=== PATIENT | male | born 1980 | race Caucasian/White ===

== ENCOUNTER 2016-09-02 18:57 | Emergency (ER) | payer SELFPAY ==
[2016-09-02] MEDS ORDERED: ONDANSETRON HCL INJ/PF 4 MG/2 ML SDV IV ONE ×2 (20:00→22:43)
[2016-09-02] MEDS ORDERED: NORMAL SALINE 1000 ML 1,000 ML IV ONE (20:00)
[2016-09-02 20:58] LABS: ABSOLUTE BASOPHILS # (AUTO) 0.1 10^3/uL (0.0-0.2); ABSOLUTE EOSINOPHILS # (AUTO) 0.1 10^3/uL (0.0-0.6); ABSOLUTE LYMPHOCYTES (AUTO) 1.4 10^3/uL (0.5-4.7); ABSOLUTE MONOCYTES (AUTO) 0.3 10^3/uL (0.1-1.4); ABSOLUTE NEUT (AUTO) 7.6 10^3/uL (1.7-8.2); BASOPHILS % (AUTO) 0.6 % (0-2); EOSINOPHILS % (AUTO) 1.4 % (0-6); HEMATOCRIT 43.6 % (37.9-51.0); HEMOGLOBIN 15.2 g/dL (13.5-17.0); LYMPHOCYTES % (AUTO) 14.8 % (13-45); MEAN CORPUSCULAR HEMOGLOBIN 27.6 pg (27.0-33.4); MEAN CORPUSCULAR HGB CONC 34.8 g/dL (32.0-36.0); MEAN CORPUSCULAR VOLUME 79 fl (80-97); MONOCYTES % (AUTO) 3.2 % (3-13); RED BLOOD COUNT 5.49 10^6/uL (4.35-5.55); RED CELL DISTRIBUTION WIDTH 13.6 % (11.5-14.0); WHITE BLOOD COUNT 9.5 10^3/uL (4.0-10.5)
[2016-09-02] MEDS: MORPHINE SULFATE 10 MG/ML INJ IV PRN ×2 (21:01→22:32)
--- NOTE | 2016-09-02 21:07 | ER Document Report ---
ED General - General Chief Complaint: Abdominal Pain Stated Complaint: ABDOMINAL PAIN Notes: Patient is a 35-year-old male with past medical history of a duodenal perforation that required an emergent surgical laparotomy who presents with concerns of recurrence of this pathology. Patient states the past 3 days he has woken up in the morning with severe vomiting and diffuse abdominal pain worse in the epigastrium. States on the previous days this pain has resolved as of vomiting independently without any intervention. However today his symptoms did not go away once they started in the morning. He describes severe , constant, stabbing pain in the epigastric portion of the abdomen. Nothing improves or worsens the pain. He has had multiple episodes of nonbilious vomiting. Last bowel movement was yesterday and noted to be normal. He has not had any melena, hematochezia or hemoptysis. He has not seen his primary care doctor regarding today's concerns. He has no additional prior surgical history. He is on Suboxone. TRAVEL OUTSIDE OF THE [place] IN LAST 30 DAYS: No - Related Data Allergies/Adverse Reactions: No Known Allergies Allergy (Unverified 09/02/16 22:34) Past Medical History - General Information source: Patient - Social History Smoking Status: Current Every Day Smoker Frequency of alcohol use: None Drug Abuse: None Lives with: Spouse/Significant other Family History: Reviewed & Not Pertinent Renal/ Medical History: Denies: Hx Peritoneal Dialysis Skin Medical History: Comment Only Hx MRSA - MRSA 02/13/2007 ABDOMEN Review of Systems - Review of Systems Notes: Constitutional: Negative for fever. HENT: Negative for sore throat. Eyes: Negative for visual changes. Cardiovascular: Negative for chest pain. Respiratory: Negative for shortness of breath. Gastrointestinal: Positive for abdominal pain and vomiting Genitourinary: Negative for dysuria. Musculoskeletal: Negative for back pain. Skin: Negative for rash. Neurological: Negative for headaches, weakness or numbness. 10 point ROS negative except as marked above and in HPI. Physical Exam - Vital signs Vitals: Temp Pulse Resp BP Pulse Ox 98.5 F 85 14 143/98 H 97 09/02/16 18:59 09/02/16 18:59 09/02/16 18:59 09/02/16 18:59 09/02/16 18:59 Notes: PHYSICAL EXAMINATION: GENERAL: Appears uncomfortable and in pain HEAD: Atraumatic, normocephalic. EYES: Pupils equal round and reactive to light, extraocular movements intact, sclera anicteric, conjunctiva are normal. ENT: nares patent, oropharynx clear without exudates. Dry mucous membranes. NECK: Normal range of motion, supple without lymphadenopathy LUNGS: Breath sounds clear to auscultation bilaterally and equal. No wheezes rales or rhonchi. HEART: Regular rate and rhythm without murmurs ABDOMEN: Prior laparotomy scar. Diffuse tenderness on palpation most focally in the epigastrium with voluntary guarding but no rebound tenderness EXTREMITIES: Normal range of motion, no pitting or edema. No cyanosis. NEUROLOGICAL: No focal neurological deficits. Moves all extremities spontaneously and on command. PSYCH: Normal mood, normal affect. SKIN: Warm, Dry, normal turgor, no rashes or lesions noted. Course - Re-evaluation Re-evalutation: 09/02/16 21:09 Patient presents with epigastric abdominal tenderness with voluntary guarding and is somewhat ill in appearance. He is hyperventilating likely secondary to pain at time of presentation. His vitals tachycardia but otherwise unremarkable. His examination beyond having abdominal tenderness in the epigastrium with voluntary guarding is otherwise unremarkable. Will obtain labs , CT the abdomen and pelvis with IV contrast to evaluate for recurrence of perforation or bowel obstruction 09/02/16 23:17 CT pelvis unremarkable without evidence of bowel perforation or obstruction. Bedside ultrasound without right upper quadrant view demonstrates a normal gallbladder without pericholecystic fluid, gallbladder wall thickening or gallstones. He has no tenderness to direct palpation the area using the ultrasound probe. At this time based on his clinical history, reassuring labs and imaging studies I believe the most with the diagnosis is gastritis with esophageal irritation as patient does report a history of his symptoms being much worse in the morning and progressively improving throughout the day. He admits to consuming "only Mountain Dew and never water". He also smokes, regularly eats spicy food. He is treated with H2 blockers and GI cocktail here in the emergency room with improvement of his symptoms. I have instructed him on dietary modifications and will start him on famotidine.At this time will discharge with return precautions and follow-up recommendations. Verbal discharge instructions given a the bedside and opportunity for questions given. Medication warnings reviewed. Patient is in agreement with this plan and has verbalized understanding of return precautions and the need for primary care follow-up in the next 24-72 hours. - Vital Signs Vital signs: Temp Pulse Resp BP Pulse Ox 98.5 F 85 14 143/98 H 97 09/02/16 18:59 09/02/16 18:59 09/02/16 18:59 09/02/16 18:59 09/02/16 18:59 - Laboratory Result Diagrams: 09/02/16 20:47 09/02/16 20:47 Laboratory results interpreted by me: 09/02/16 09/02/16 20:47 20:47 MCV 79 L Seg Neutrophils % 80.0 H BUN 22 H Glucose 127 H AST 93 H ALT 131 H Total Protein 8.4 H - Diagnostic Test Radiology reviewed: Reports reviewed Discharge - Discharge Clinical Impression: Epigastric abdominal pain Condition: Good Disposition: HOME, SELF-CARE Additional Instructions: Your symptoms appear to be most consistent with stomach or upper intestinal irritation. Your evaluation here today has not demonstrated an alternative cause for your symptoms. Please begin taking famotidine 40 mg in the morning and 40 mg at night. This medicine can be purchased directly [id number]. You may also take medicine such as Pepto-Bismol or Tums to assist with your pain. Please follow closely with your primary care doctor in the next 24-48 hours regarding today's emergency department visit. Please return immediately if you develop persistent vomiting, worsening pain, again having bloody bowel movements, develop a fever greater than 100.4F, or have any other symptoms that are worrisome to you.
[2016-09-02 21:23] LABS: ALANINE AMINOTRANSFERASE 131 U/L (21-72); ALBUMIN 4.7 g/dL (3.5-5.0); ALKALINE PHOSPHATASE 65 U/L (38-126); ANION GAP 13 (5-19); ASPARTATE AMINO TRANSFERASE 93 U/L (17-59); BILIRUBIN,DIRECT 0.4 mg/dL (0.0-0.4); BILIRUBIN,TOTAL 0.7 mg/dL (0.2-1.3); BLOOD UREA NITROGEN 22 mg/dL (7-20); CALCIUM 10.1 mg/dL (8.4-10.2); CARBON DIOXIDE 27 mmol/L (22-30); CHLORIDE 103 mmol/L (98-107); CREATININE RESULT 0.61 mg/dL (0.52-1.25); GLUCOSE 127 mg/dL (75-110); LIPASE 55.4 U/L (23-300); SODIUM 143.4 mmol/L (137-145); TOTAL PROTEIN 8.4 g/dL (6.3-8.2)
[2016-09-02] MEDS ORDERED: METOCLOPRAMIDE HCL ORAL SOLN 10 MG/10 ML UDCUP PO ONE (23:19)
[2016-09-02] MEDS ORDERED: FAMOTIDINE 20 MG TABLET PO ONE (23:19)
[2016-09-02] MEDS ORDERED: MAG HYDROX/AL HYDROX/SIMETH SUSP 30 ML UDCUP PO ONE (23:19)
[2016-09-02] MEDS ORDERED: LIDOCAINE 2% VISCOUS SOLN 20 ML UDCUP PO ONE (23:19)
[2016-09-02] MEDS ORDERED: ONDANSETRON ODT 4 MG TAB (6 TAB/DSPK) PO PRN (23:20)
[2016-09-03 01:03] VITALS: BP 141/84
== END 2016-09-03 01:02 | disposition home or self-care (01) ==
LOC: ER 18:57
DX: R10.13 Epigastric pain (principal); Z86.14 Personal history of Methicillin resistant Staphylococcus aureus infection
CPT/HCPCS: 96376; 99284; 96361; 96374; 96375; 36415; 83690; 85025; 80053; 74177; J3490; J2270; J2405; J7030

== ENCOUNTER 2017-10-29 20:39 | Inpatient (IN) | payer SELFPAY ==
[2017-10-30] MEDS ORDERED: VANCOMYCIN HCL INJ 1000 MG VIAL IV ONE (00:17)
[2017-10-30] MEDS ORDERED: CEFTRIAXONE INJ 1000 MG VIAL IV ONE (00:17)
[2017-10-30] MEDS ORDERED: KETOROLAC TROMETHAMINE INJ/PF 30 MG/1 ML SDV IV ONE (00:17)
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
[2017-10-30 00:52] LABS: ABSOLUTE EOSINOPHILS # (AUTO) 0.2 10^3/uL (0.0-0.6); ABSOLUTE LYMPHOCYTES (AUTO) 1.3 10^3/uL (0.5-4.7); ABSOLUTE MONOCYTES (AUTO) 0.6 10^3/uL (0.1-1.4); ABSOLUTE NEUT (AUTO) 5.7 10^3/uL (1.7-8.2); BASOPHILS % (AUTO) 0.3 % (0-2); EOSINOPHILS % (AUTO) 2.7 % (0-6); HEMOGLOBIN 12.5 g/dL (13.5-17.0); LYMPHOCYTES % (AUTO) 16.4 % (13-45); MEAN CORPUSCULAR HEMOGLOBIN 27.1 pg (27.0-33.4); MEAN CORPUSCULAR HGB CONC 34.6 g/dL (32.0-36.0); MEAN CORPUSCULAR VOLUME 78 fl (80-97); MONOCYTES % (AUTO) 8.2 % (3-13); PLATELET COUNT 246 10^3/uL (150-450); RED CELL DISTRIBUTION WIDTH 13.5 % (11.5-14.0); SEGMENTED NEUTROPHILS % (AUTO) 72.4 % (42-78); TOTAL CELLS COUNTED % (AUTO) 100 %; WHITE BLOOD COUNT 7.9 10^3/uL (4.0-10.5)
[2017-10-30 01:08] LABS: ALANINE AMINOTRANSFERASE 101 U/L (21-72); ALBUMIN 3.7 g/dL (3.5-5.0); ALKALINE PHOSPHATASE 57 U/L (38-126); ANION GAP 8 (5-19); ASPARTATE AMINO TRANSFERASE 64 U/L (17-59); BILIRUBIN,DIRECT 0.2 mg/dL (0.0-0.4); BILIRUBIN,TOTAL 0.3 mg/dL (0.2-1.3); BLOOD UREA NITROGEN 15 mg/dL (7-20); C-REACTIVE PROTEIN 40.6 mg/L (<10.0); CARBON DIOXIDE 28 mmol/L (22-30); CHLORIDE 106 mmol/L (98-107); GLUCOSE 110 mg/dL (75-110); POTASSIUM 3.8 mmol/L (3.6-5.0); SODIUM 142.4 mmol/L (137-145); TOTAL PROTEIN 6.9 g/dL (6.3-8.2)
--- NOTE | 2017-10-30 01:12 | RADIOLOGY REPORT (SQ) ---
Plain Film Of The Hand LEFT Clinical History: Pain. Technique: 3 views of the hand are submitted for review. Comparison: None Findings: Postoperative changes of the second and third metacarpal are demonstrated. There is evidence of orthopedic hardware fracture of the plate overlying the second digit.. There is no evidence for acute fracture. Bone mineralization is within normal. Joint spaces are maintained. Soft tissues are edematous. Impression: 1. Fracture to the orthopedic plate overlying the second metacarpal. 2. Fracture of a orthopedic screw overlying the third digit.
[2017-10-30] MEDS: MORPHINE SULFATE IR 15 MG TABLET PO PRN ×3 (01:24→21:33)
[2017-10-30 02:02] LABS: ERYTHROCYTE SEDIMENTATION RATE 30 mm/hr (0-15)
[2017-10-30] MEDS ORDERED: DEXTROSE 40% GEL 15 GM TUBE PO PRN ×2 (03:56)
[2017-10-30] MEDS ORDERED: GLUCAGON,HUMAN RECOMB 1 MG INJ SUBCUT PRN (03:56)
[2017-10-30] MEDS ORDERED: DEXTROSE 50%-WATER 25 GM/50 ML DISP.SYRIN IV PRN ×2 (03:56)
[2017-10-30] MEDS: OXYCODONE-ACETAMINOPHEN 5-325 MG TABLET PO PRN ×2 (06:52→23:50)
[2017-10-30] MEDS: KETOROLAC TROMETHAMINE INJ/PF 30 MG/1 ML SDV IV PRN ×2 (09:37→19:42)
[2017-10-30] MEDS ORDERED: CLOPIDOGREL BISULFATE 75 MG TABLET PO SCH (10:00)
[2017-10-30] MEDS ORDERED: ASPIRIN 325 MG TABLET PO SCH (10:00)
[2017-10-30] MEDS ORDERED: ACETAMINOPHEN 325 MG TABLET PO PRN (12:29)
[2017-10-30] MEDS ORDERED: CEFTRIAXONE 1 GM/D5W RTU 1 GM/50 ML RTUPB IV ONE (13:00)
--- NOTE | 2017-10-30 13:25 | PDOC H&P ---
History of Present Illness Admission Date/PCP: 10/30/17 03:01 Patient complains of: Right hand pain History of Present Illness: KASEY FREY is a 37 year old male who presents to emergency room with pain and swelling in his right hand. After discussing this issue with the emergency room he admitted to injecting Suboxone into his brachial artery at the upper arm level. He is having no pain or issues with the injection site but complains of significant discomfort discomfort mainly in his fingertips. Patient has been receiving pain medication and started on warm compresses along with aspirin. He does note symptoms in his hand and thumb have notably improved but continues to have residual discomfort in the fingertips which he describes as burning type pain. Current pain 11/29. Patient denies chest pain or shortness of breath. Social History Lives with: Spouse/Significant other Smoking Status: Current Every Day Smoker Cigarettes Packs Per Day: 1 Frequency of Alcohol Use: Rare Hx Recreational Drug Use: Yes Drugs: Other Family History Family History: Reviewed & Not Pertinent Parental Family History Reviewed: No Children Family History Reviewed: No Sibling(s) Family History Reviewed.: No Medication/Allergy Home Medications: No Home Medications 10/29/17 Allergies/Adverse Reactions: No Known Allergies Allergy (Verified 10/29/17 20:39) Review of Systems Constitutional: ABSENT: chills, fever(s), headache(s), weight gain, weight loss Eyes: ABSENT: visual disturbances Ears: ABSENT: hearing changes Cardiovascular: ABSENT: chest pain, dyspnea on exertion, edema, orthropnea, palpitations Respiratory: PRESENT: cough. ABSENT: hemoptysis Gastrointestinal: ABSENT: abdominal pain, constipation, diarrhea, hematemesis, hematochezia, nausea, vomiting Genitourinary: ABSENT: dysuria, hematuria Musculoskeletal: PRESENT: as per HPI Integumentary: ABSENT: rash, wounds Neurological: ABSENT: abnormal gait, abnormal speech, confusion, dizziness, focal weakness, syncope Psychiatric: ABSENT: anxiety, depression, homidical ideation, suicidal ideation Endocrine: ABSENT: cold intolerance, heat intolerance, menstrual abnormalities, polydipsia, polyuria Hematologic/Lymphatic: ABSENT: easy bleeding, easy bruising, lymphadenopathy Physical Exam Vital Signs: Temp Pulse Resp BP Pulse Ox 98.6 F 83 18 135/84 H 95 10/30/17 06:41 10/30/17 06:41 10/30/17 06:41 10/30/17 06:41 10/30/17 12:12 Pulse Oximeter Continuous Start: 10/30/17 10: 13 Freq: RTQ4 Status: Active Document 10/30/17 12:12 [facility] (Rec: 10/30/17 12:17 [facility] [email or web address]) Pulse Oximetry Assessment Oxygen Saturation (92-100) 95 Oxygen Delivery Method Room Air Equipment Usage Initial Set Up Continuous Pulse Oximeter 24 Hour Charge Charge Now Continuous SpO2 Machine # [id number] Additional RT Notes Other Patient's probe s/b on the right hand side. Was initially set with right middle finger; however, patient complained he felt finger was in a ink blender. It was immediately removed and placed on right index finger. Patient indicated it felt better. General appearance: PRESENT: no acute distress, well-developed, well-nourished Head exam: PRESENT: atraumatic, normocephalic Eye exam: PRESENT: conjunctiva pink, EOMI, PERRLA. ABSENT: scleral icterus Ear exam: PRESENT: normal external ear exam Mouth exam: PRESENT: moist, tongue midline Neck exam: PRESENT: full ROM. ABSENT: carotid bruit, JVD, lymphadenopathy, thyromegaly Respiratory exam: PRESENT: unlabored, other - Productive cough Cardiovascular exam: PRESENT: RRR. ABSENT: diastolic murmur, rubs, systolic murmur Pulses: PRESENT: normal dorsalis pedis pul, +2 pedal pulses bilateral Vascular exam: PRESENT: normal capillary refill GI/Abdominal exam: PRESENT: normal bowel sounds, soft. ABSENT: distended, guarding, mass, organolmegaly, rebound, tenderness Rectal exam: PRESENT: deferred Musculoskeletal exam: PRESENT: other - Right upper extremity: Small area of ecchymosis along the medial aspect of the arm at the level of the brachial artery and patient's injection site. No palpable thrill or palpable mass. Distally hypoesthesia along the distal tips of the digits. Intact flexion/ extension DIP and IP joints but painful range of motion noted. Mild swelling along the thenar eminence volarly with mild tenderness to palpation. Petechiae along the thenar eminence and hypo-thenar eminence. Cap refill less than 2 seconds in all digits with normal skin turgor, tenderness along the distal tips. Radial/ulnar pulse 2+. Previous surgical incisions on the second and third metacarpals without tenderness to palpation. Mild deformity. Compartments soft and compressible no sign of compartment syndrome. Neurological exam: PRESENT: alert, awake, oriented to person, oriented to place , oriented to time, oriented to situation, CN II-XII grossly intact. ABSENT: motor sensory deficit Psychiatric exam: PRESENT: appropriate affect, normal mood. ABSENT: homicidal ideation, suicidal ideation Skin exam: PRESENT: dry, intact, warm. ABSENT: cyanosis, rash Results Status: Image reviewed by me - Postsurgical changes of the second third metacarpal shaft with significant fracture healing however hardware failure along the second metacarpal. 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 On examination there is no findings of true or pseudoaneurysm furthermore he has maintained vascularity however given his issue there is the possibility he does develop ischemia. After reviewing literature of the above issue best treatment option at this point is conservative management including warm compresses and anticoagulation including Plavix. Since there is no sign or symptoms of ischemic event I do not feel operative intervention is currently warranted patient will be monitored with continuous pulse ox along with neurovascular checks regularly. I will also obtain arterial duplex of the right upper extremity stat to evaluate for further possible lesion including pseudoaneurysm or constriction. We will also treat the patient empirically with antibiotics due to his high risk of infection. Patient understands the severity of his actions and current condition including the possibility of digit or worse limb loss. We will avoid IV pain medication given patient's history but will continue Percocet and Toradol.
[2017-10-30] MEDS ORDERED: CEFTRIAXONE SODIUM 1,000 MG in DEXTROSE 5%-WATER 50 ML IV ONE (14:00)
[2017-10-30] MEDS: BENZOCAINE/MENTHOL SORE THROAT LOZENGE BUCCAL PRN ×2 (14:36→19:42)
[2017-10-30] MEDS: SENNOSIDES/DOCUSATE 8.6-50 MG 1 EACH TABLET PO SCH (17:15)
[2017-10-30] MEDS: ONDANSETRON HCL INJ/PF 4 MG/2 ML SDV IV PRN (18:05)
[2017-10-30 22:45] LABS: URINE AMPHETAMINES SCREEN NEGATIVE; URINE BARBITURATES SCREEN NEGATIVE; URINE BENZODIAZEPINES SCREEN NEGATIVE; URINE COCAINE SCREEN NEGATIVE; URINE METHADONE SCREEN NEGATIVE; URINE PHENCYCLIDINE SCREEN NEGATIVE
[2017-10-30 22:52] LABS: URINE MARIJUANA (THC) SCREEN UNCONFIRMED POSITIVE
[2017-10-31] MEDS ORDERED: VANCOMYCIN HCL 1,000 MG in DEXTROSE 5%-WATER 250 ML IV ONE (00:29)
[2017-10-31] MEDS: KETOROLAC TROMETHAMINE INJ/PF 30 MG/1 ML SDV IV PRN ×2 (07:18→15:39)
--- NOTE | 2017-10-31 07:28 | PDOC PROGRESS REPORT ---
Subjective Progress Note for:: 10/31/17 Subjective:: Patient lying in bed comfortably. Continues to have discomfort in his fingertips specifically middle finger. Denies fever chills or sweats. Has been taking Toradol with relief. Reason For Visit: INFECTION OF RIGHT HAND,INTRAVENOUS DRUG ABUSE, Physical Exam Vital Signs: Temp Pulse Resp BP Pulse Ox 97.4 F 60 17 101/57 L 96 10/31/17 04:00 10/31/17 04:00 10/31/17 04:00 10/31/17 04:00 10/31/17 04:00 Pulse Oximeter Continuous Start: 10/30/17 10: 13 Freq: RTQ4 Status: Active Document 10/31/17 04:00 [facility] (Rec: 10/31/17 04:17 [facility] [email or web address]) Pulse Oximetry Assessment Oxygen Saturation (92-100) 96 Oxygen Delivery Method Room Air Equipment Usage Equipment in Use Continuous SpO2 Machine # 10 Musculoskeletal exam: PRESENT: other - Right hand: Refill less than 2 seconds. Normal skin turgor. No evidence of discoloration. There is small superficial pustules along the thenar eminence and hyperthenar eminence. Mild tenderness to palpation. Compartments soft and compressible no sign of compartment syndrome. No pain along the flexor sheath. Intact flexion/extension IP/MP joints. Injection site proximally small area of ecchymosis no swelling palpable thrill or pulsatile mass. 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 On examination there is no findings of true or pseudoaneurysm furthermore he has maintained vascularity however given his issue there is the possibility he does develop ischemia. Will continue Plavix. Patient has positive blood cultures for gram- positive cocci which coincides with patient's social history and may indicate possible underlying bacteremia versus endocarditis versus contaminant. At this point I have recommended hospitalist consultation to determine appropriate treatment. We will also obtain arterial duplex today along with MRI of the right hand to evaluate for possible occult abscess or fluid collection.
[2017-10-31] MEDS: OXYCODONE-ACETAMINOPHEN 5-325 MG TABLET PO PRN ×2 (09:52→18:16)
[2017-10-31] MEDS: CLOPIDOGREL BISULFATE 75 MG TABLET PO SCH (09:52)
[2017-10-31] MEDS: SENNOSIDES/DOCUSATE 8.6-50 MG 1 EACH TABLET PO SCH ×2 (09:53→18:13)
[2017-10-31 11:19] LABS: HEMATOCRIT 38.8 % (37.9-51.0); HEMOGLOBIN 13.3 g/dL (13.5-17.0); MEAN CORPUSCULAR HEMOGLOBIN 27.1 pg (27.0-33.4); MEAN CORPUSCULAR HGB CONC 34.4 g/dL (32.0-36.0); MEAN CORPUSCULAR VOLUME 79 fl (80-97); PLATELET COUNT 232 10^3/uL (150-450); RED BLOOD COUNT 4.93 10^6/uL (4.35-5.55); RED CELL DISTRIBUTION WIDTH 13.3 % (11.5-14.0); WHITE BLOOD COUNT 6.4 10^3/uL (4.0-10.5)
--- NOTE | 2017-10-31 11:31 | RADIOLOGY REPORT (SQ) ---
EXAM DESCRIPTION: MRI RT UPPER EXTREMITY COMBO COMPLETED DATE/TIME: 10/31/2017 9:44 am REASON FOR STUDY: Occult abscess/fluid collection COMPARISON: Right hand films 10/30/2017 TECHNIQUE: Multiplanar imaging to include T1-weighted images, T-2 weighted images, and gradient echo imaging. Orthogonal images orientated to the plane of the right hand. Additional postcontrast axia l, coronal, and sagittal T1 weighted images were also submitted. Images saved to PACS. LIMITATIONS: Artifact from metallic hardware along the 2nd and 3rd metacarpals. FINDINGS: BONES: Along the 2nd metacarpal midshaft, there is a healed fracture with mild palmar angu lation of the distal fracture fragment. Although the dorsal fixation plate along the 2nd metacarpal is fractured and angulated, no lucency around the screws is seen. There is a healed 3rd metacarpal midshaft fracture with a dorsal fixation plate which is intact. The re is a screw fracture along the 3rd screw from the distal end of the plate. No lucency around the s crew worrisome for loosening. There is disturbance in the local magnetic field adjacent to the hardware, making evaluation of the m arrow along these bones difficult. Remainder of the of visualized bones right hand are otherwise unremarkable LIGAMENTS: No evidence for ligamentous tear. TENDONS: Tendons are intact without evidence for tendinopathy. SOFT TISSUES: There is mild subcutaneous edema over the dorsal hand along the 3rd and 4th midshaft me tacarpal region without well-circumscribed abscess. Minimal if any contrast enhancement is present. There is edema in the subcutaneous fat over the seen are eminence best shown on STIR image 01/13 and 1 10/04. No abscess. Minimal contrast enhancement. OTHER: No other significant finding. IMPRESSION: Healed 2nd and 3rd metacarpal fractures. Hardware failure with fractured 2nd metacarpal fixation plate and fractured 3rd metacarpal screw. Very mild subcutaneous edema over the thenar eminence and dorsal hand. TECHNICAL DOCUMENTATION: JOB ID: [id number] [employer]- All Rights Reserved Reading location - IP/workstation name: [email or web address]
[2017-10-31 12:01] LABS: ANION GAP 10 (5-19); BLOOD UREA NITROGEN 18 mg/dL (7-20); C-REACTIVE PROTEIN 38.1 mg/L (<10.0); CALCIUM 9.3 mg/dL (8.4-10.2); CARBON DIOXIDE 29 mmol/L (22-30); CHLORIDE 107 mmol/L (98-107); GLUCOSE 143 mg/dL (75-110); POTASSIUM 3.8 mmol/L (3.6-5.0); SODIUM 145.7 mmol/L (137-145)
[2017-10-31 12:03] LABS: ERYTHROCYTE SEDIMENTATION RATE 30 mm/hr (0-15)
--- NOTE | 2017-10-31 15:33 | PDOC CONSULTATION ---
Consultation Consult Date: 10/31/17 Attending physician:: LEAH WOLF Consult reason:: Bacteremia. Right hand cellulitis History of Present Illness Admission Date/PCP: 10/30/17 03:01 Patient complains of: Right hand pain and redness History of Present Illness: KASEY FREY is a 37 year old male who presents to [facility] emergency room with pain and swelling in his right hand. After discussing this issue with the emergency room he admitted to injecting Suboxone into his brachial artery at the upper arm level. He is having no pain or issues with the injection site but complains of significant discomfort discomfort mainly in his fingertips. Patient has been receiving pain medication and started on warm compresses along with aspirin. He does note symptoms in his hand and thumb have notably improved but continues to have residual discomfort in the fingertips which he describes as burning type pain. Current pain 11/29. Patient denies chest pain or shortness of breath. Past Medical History Cardiac Medical History: Reports: None Pulmonary Medical History: Reports: None EENT Medical History: Reports: None Neurological Medical History: Reports: None Endocrine Medical History: Reports: None Renal/ Medical History: Reports: None Malignancy Medical History: Reports: None GI Medical History: Reports: None Musculoskeltal Medical History: Reports: None Skin Medical History: Reports: None Psychiatric Medical History: Reports: None Traumatic Medical History: Reports: None Hematology: Reports: Anemia Infectious Medical History: Reports: None Past Surgical History Past Surgical History: Reports: None Social History Information Source: Patient Lives with: Spouse/Significant other Smoking Status: Current Every Day Smoker Cigarettes Packs Per Day: 1 Frequency of Alcohol Use: Rare Hx Recreational Drug Use: Yes Drugs: Other - Advance Directive Resuscitation Status: Full Code Family History Family History: Hypertension Parental Family History Reviewed: Yes Children Family History Reviewed: Yes Sibling(s) Family History Reviewed.: Yes Medication/Allergy Home Medications: No Home Medications 10/29/17 Allergies/Adverse Reactions: No Known Allergies Allergy (Verified 10/29/17 20:39) Review of Systems Constitutional: PRESENT: chills Eyes: ABSENT: visual disturbances Ears: ABSENT: hearing changes Cardiovascular: ABSENT: chest pain, dyspnea on exertion, edema, orthropnea, palpitations Respiratory: ABSENT: cough, hemoptysis Gastrointestinal: ABSENT: abdominal pain, constipation, diarrhea, hematemesis, hematochezia, nausea, vomiting Genitourinary: ABSENT: dysuria, hematuria Musculoskeletal: ABSENT: joint swelling Integumentary: PRESENT: erythema, wounds - right hand. ABSENT: rash Psychiatric: ABSENT: anxiety, depression, homidical ideation, suicidal ideation Endocrine: ABSENT: cold intolerance, heat intolerance, polydipsia, polyuria Hematologic/Lymphatic: ABSENT: easy bleeding, easy bruising Physical Exam Vital Signs: Temp Pulse Resp BP Pulse Ox 98.3 F 63 15 117/61 92 10/31/17 08:21 10/31/17 08:21 10/31/17 08:21 10/31/17 08:21 10/31/17 08:21 Pulse Oximeter Continuous Start: 10/30/17 10: 13 Freq: RTQ4 Status: Active Document 10/31/17 04:00 [facility] (Rec: 10/31/17 04:17 [facility] [email or web address]) Pulse Oximetry Assessment Oxygen Saturation (92-100) 96 Oxygen Delivery Method Room Air Equipment Usage Equipment in Use Continuous SpO2 Machine # 10 General appearance: PRESENT: no acute distress, thin, well-developed Head exam: PRESENT: atraumatic, normocephalic Eye exam: PRESENT: conjunctiva pink, EOMI, PERRLA. ABSENT: scleral icterus Ear exam: PRESENT: normal external ear exam Mouth exam: PRESENT: moist, tongue midline Neck exam: ABSENT: carotid bruit, JVD, lymphadenopathy, thyromegaly Respiratory exam: PRESENT: clear to auscultation lucho. ABSENT: rales, rhonchi, wheezes Cardiovascular exam: PRESENT: RRR. ABSENT: diastolic murmur, rubs, systolic murmur Pulses: PRESENT: normal dorsalis pedis pul Vascular exam: PRESENT: normal capillary refill GI/Abdominal exam: PRESENT: normal bowel sounds, soft. ABSENT: distended, guarding, mass, organolmegaly, rebound, tenderness Rectal exam: PRESENT: deferred Extremities exam: PRESENT: full ROM - right hand and forearm, tenderness, other Musculoskeletal exam: PRESENT: ambulatory, full ROM, tenderness - right hand Neurological exam: PRESENT: alert, awake, oriented to person, oriented to place , oriented to time, oriented to situation, CN II-XII grossly intact. ABSENT: motor sensory deficit Psychiatric exam: PRESENT: anxious Skin exam: PRESENT: erythema, warm Assessment & Plan - Diagnosis (1) Cellulitis of hand, right Is this a current diagnosis for this admission?: Yes Plan: 1 out of 2 blood cultures positive for gram-positive cocci. Continue IV broad- spectrum antibiotics. Await culture results. Could be a contaminant. 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 MRI pending. She is presently on Plavix. (3) IV drug abuse Is this a current diagnosis for this admission?: Yes Plan: Counseled. (4) Septic arterial embolism Is this a current diagnosis for this admission?: Yes Plan: Arterial flow post studies are pending. Continue Plavix - Time Time Spent: 50 to 70 Minutes Total Critical Time (Minutes): 30 Medications reviewed and adjusted accordingly: Yes
--- NOTE | 2017-10-31 16:25 | XCELERA REPORT ---
[address] [address] Upper Extremity Arterial Evaluation Name: KASEY FREY Age: 37 yrs Gender: Male : 1980 Patient Status: Inpatient Patient Location: [address] [place] [address] Study Date: 10/31/2017 11:18 AM Procedure: A duplex scan of the upper extremity arteries was performed on the right. Reason For Study: Evaluate for pseudoaryneusm Ordering Physician: LEAH WOLF Performed By: Tang Saldivar Measurements and Calculations Right Left Mid SCLA PSV 145.8 cm/sec Ax A PSV -93.6 cm/sec Prox Brach A PSV -122.6 cm/sec Dist Brach A PSV -120.7 cm/sec Prox Rad A PSV -107.5 cm/sec Dist Rad A PSV -125.1 cm/sec Prox Ulnar A PSV 62.9 cm/sec Dist Ulnar A PSV 105.1 cm/sec Ax A PSV -93.6 cm/sec Dist Brach A PSV -120.7 cm/sec Dist Rad A PSV -125.1 cm/sec Dist Ulnar A PSV 105.1 cm/sec Mid SCLA PSV 145.8 cm/sec Prox Brach A PSV -122.6 cm/sec Prox Rad A PSV -107.5 cm/sec Prox Ulnar A PSV 62.9 cm/sec Right Side Arterial Evaluation No pseudo aneurysm seen. Normal velocity and triphasic waveforms noted from the Common Carotid artery to the forearm vessels. 0 % stenosis . Interpretation Summary No hemodynamically significant lesions noted in the right upper extremity arteries, on duplex imaging, at rest. No pseudo aneurysm seen. : LEAH WOLF, Shamar >
[2017-10-31] MEDS ORDERED: VANCOMYCIN HCL 0 MG in DEXTROSE 5%-WATER 250 ML IV NR (18:15)
[2017-10-31] MEDS ORDERED: NICOTINE 7 MG/24 HR PATCH.TD24 TD ONE (22:00)
[2017-10-31] MEDS: PIPERACILLIN SODIUM/TAZOBACTAM 4.5 GM in NORMAL SALINE 100 ML IV SCH (22:09)
[2017-10-31] MEDS: VANCOMYCIN HCL 1,000 MG in DEXTROSE 5%-WATER 250 ML IV SCH (23:12)
[2017-11-01] MEDS: KETOROLAC TROMETHAMINE INJ/PF 30 MG/1 ML SDV IV PRN ×3 (00:09→17:50)
[2017-11-01] MEDS: OXYCODONE-ACETAMINOPHEN 5-325 MG TABLET PO PRN ×4 (01:00→20:04)
[2017-11-01] MEDS: PIPERACILLIN SODIUM/TAZOBACTAM 4.5 GM in NORMAL SALINE 100 ML IV SCH ×4 (03:39→21:50)
[2017-11-01] MEDS: VANCOMYCIN HCL 1,000 MG in DEXTROSE 5%-WATER 250 ML IV SCH ×3 (06:36→22:34)
[2017-11-01 08:33] LABS: HEMATOCRIT 36.8 % (37.9-51.0); HEMOGLOBIN 12.8 g/dL (13.5-17.0); MEAN CORPUSCULAR HEMOGLOBIN 27.3 pg (27.0-33.4); MEAN CORPUSCULAR HGB CONC 34.7 g/dL (32.0-36.0); MEAN CORPUSCULAR VOLUME 79 fl (80-97); PLATELET COUNT 259 10^3/uL (150-450); RED BLOOD COUNT 4.68 10^6/uL (4.35-5.55); RED CELL DISTRIBUTION WIDTH 13.4 % (11.5-14.0); WHITE BLOOD COUNT 7.6 10^3/uL (4.0-10.5)
[2017-11-01 08:58] LABS: ANION GAP 9 (5-19); BLOOD UREA NITROGEN 21 mg/dL (7-20); CARBON DIOXIDE 25 mmol/L (22-30); CHLORIDE 110 mmol/L (98-107); GLUCOSE 101 mg/dL (75-110); POTASSIUM 3.9 mmol/L (3.6-5.0)
[2017-11-01] MEDS: CLOPIDOGREL BISULFATE 75 MG TABLET PO SCH (10:40)
[2017-11-01] MEDS: NICOTINE 7 MG/24 HR PATCH.TD24 TD SCH (10:41)
[2017-11-01] MEDS: SENNOSIDES/DOCUSATE 8.6-50 MG 1 EACH TABLET PO SCH ×2 (10:41→17:53)
--- NOTE | 2017-11-01 13:19 | RADIOLOGY REPORT (SQ) ---
EXAM DESCRIPTION: PICC INSERTION; U/S GUIDE FOR VASCULAR ACCESS; FLUORO/CV PLACEMENT COMPLETED DATE/TIME: 11/01/2017 12:20 pm REASON FOR STUDY: iv antibiotics; IV ANTIBIOTICS, PICC INSERTION; PICC INSERTION COMPARISON: Two-view chest 10/21/2006 FLUOROSCOPY TIME: 22 seconds 1 digital chest image, 1 ultrasound imagesaved to PACS. TECHNIQUE: Fluoroscopic and ultrasound guided PICC placement. LIMITATIONS: None. PROCEDURE: After written consent and assessment were obtained, the patient was brought into the fluo roscopy room and place supine on the table. Ultrasound evaluation of potential access sites were perf ormed. After successfully identifying a patent left basilic vein, the left arm was prepped and draped in a sterile fashion along with the ultrasound probe. The entry site was anesthetized with 1% lidoca ine. A 21 gauge 7 cm needle was advanced through the skin and into the basilic vein under live ultras ound guidance. An ultrasound image was saved to PACS confirming access site. A .018 guide wire was then inserted through the needle and into the venous system. The needle was the removed and an 11 daniella de scalpel was used to make a 1cm skin incision. A 5 fr peel-away sheath was advanced over the wire and into the venous system. A measurement was then made using the existing wire and live fluoroscopic guidance. The wire was then removed and the trimmed. The PICC was advanced through the peel-away she ath and into the venous system. The peel-away sheath was removed and the catheter was adhered to the patients arm with a stat lock. The catheter was then aspirated and flushed and a sterile bandage was placed over the access site. A fluoroscopic spot image was saved to PACS confirming the catheter tip within the superior vena cava. IMPRESSION: SUCCESSFUL PLACEMENT OF A 5 FR DUAL LUMEN 40 CM PICC IN THE LEFT BASILIC VEIN. COMMENT: Patient medication list reviewed: Yes- Quality ID# 130:Eligible professional attests to doc umenting in the medical record they obtained, updated, or reviewed the patient's current medications. . Quality ID 145: Final reports for procedures using fluoroscopy that document radiation exposure nadiya juve, or exposure time and number of fluorographic images (if radiation exposure indices are not avail able) Quality ID #76: The patient was prepped and draped using maximum sterile barrier technique including cap, mask, sterile gown, sterile gloves, a large sterile sheet, hand hygiene, and 2% Chlorhexidine fo r cutaneous antisepsis. When ultrasound is used, sterile ultrasound techniques are followed requiring sterile gel and sterile probes. TECHNICAL DOCUMENTATION: JOB ID: [id number] [employer]- All Rights Reserved rev-10/07 Reading location - IP/workstation name: [facility]
--- NOTE | 2017-11-01 16:46 | PDOC PROGRESS REPORT ---
Subjective Progress Note for:: 11/01/17 Subjective:: KASEY FREY is a 37 y.o. M who presented to the ER with R hand swelling and admitted to ER MD that he injected suboxone into his brachial artery at the upper arm level. The patient was evaluated by Ortho, Dr. Boogie states there is no surgical intervention. Vascular, Dr. Ibanez, was consulted, awaiting his recommendations. Patient seen this morning on rounds, he is resting comfortably in bed. He continues to complain of pain and limited ROM to his five digits. Swelling to the dorsal aspect of the R hand. Currently on Toradol, Percocet, and heating pad for pain relief. No fever or chills. MRI R hand and Arterial US of RUE completed, results benign for both studies. Reason For Visit: RIGHT HAND INFECTION,INTRAVENOUS DRUG ABUSE Physical Exam Vital Signs: Temp Pulse Resp BP Pulse Ox 97.9 F 63 22 H 110/75 95 11/01/17 08:00 11/01/17 08:00 11/01/17 08:00 11/01/17 08:00 11/01/17 12:15 Pulse Oximeter Continuous Start: 10/30/17 10: 13 Freq: RTQ4 Status: Active Document 11/01/17 12:15 [facility] (Rec: 11/01/17 13:01 [facility] [email or web address]) Pulse Oximetry Assessment Oxygen Saturation (92-100) 95 Oxygen Delivery Method Room Air Equipment Usage Equipment in Use Continuous SpO2 Machine # 10 Intake & Output 10/31/17 11/01/17 11/02/17 06:59 06:59 06:59 Intake Total 1740 Balance 1740 General appearance: PRESENT: no acute distress Eye exam: PRESENT: conjunctiva pink, PERRLA Mouth exam: PRESENT: moist Neck exam: PRESENT: full ROM Respiratory exam: PRESENT: clear to auscultation lucho, symmetrical, unlabored Cardiovascular exam: PRESENT: RRR, +S1, +S2 Pulses: PRESENT: normal radial pulses, normal dorsalis pedis pul GI/Abdominal exam: PRESENT: normal bowel sounds, soft. ABSENT: tenderness Rectal exam: PRESENT: deferred Extremities exam: PRESENT: full ROM Musculoskeletal exam: PRESENT: ambulatory, deformity - R HAND SWELLING TO THE DORSAL ASPECT OF HAND, full ROM Neurological exam: PRESENT: alert, awake, oriented to person, oriented to place , oriented to time, oriented to situation Psychiatric exam: PRESENT: appropriate affect Skin exam: PRESENT: dry, intact Results Laboratory Results: 11/01/17 08:00 11/01/17 08:00 11/01/17 11/01/17 08:00 08:00 WBC 7.6 RBC 4.68 Hgb 12.8 L Hct 36.8 L MCV 79 L MCH 27.3 MCHC 34.7 RDW 13.4 Plt Count 259 Sodium 144.0 Potassium 3.9 Chloride 110 H Carbon Dioxide 25 Anion Gap 9 BUN 21 H Creatinine 0.69 Est GFR ( Amer) > 60 Est GFR (Non-Af Amer) > 60 Glucose 101 Calcium 9.0 Impressions: Upper Extremity MRI 10/31/17 00:00 IMPRESSION: Healed 2nd and 3rd metacarpal fractures. Hardware failure with fractured 2nd metacarpal fixation plate and fractured 3rd metacarpal screw. Very mild subcutaneous edema over the thenar eminence and dorsal hand. Guidance Fluoroscopy 11/01/17 00:00 IMPRESSION: SUCCESSFUL PLACEMENT OF A 5 FR DUAL LUMEN 40 CM PICC IN THE LEFT BASILIC VEIN. Interventional Vascular Procedure 11/01/17 00:00 IMPRESSION: SUCCESSFUL PLACEMENT OF A 5 FR DUAL LUMEN 40 CM PICC IN THE LEFT BASILIC VEIN. PICC Line Insertion 11/01/17 00:00 IMPRESSION: SUCCESSFUL PLACEMENT OF A 5 FR DUAL LUMEN 40 CM PICC IN THE LEFT BASILIC VEIN. Status: Imported from PACS Assessment & Plan - Diagnosis (1) Cellulitis of hand, right Is this a current diagnosis for this admission?: Yes Plan: Positive blood cultures (G+ cocci in 1 bottle), concerned that this could be contaminant. Plan to re-culture. Continue broad spectrum antibiotics at this time. 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 Counseled on the dangers of this behavior as well as the extreme danger of injecting oral medication into his arteries. Patient states understanding. Very concerned about non-compliance issues if patient is discharged too soon. Will discuss treatment options with discharge planning. - Time Time Spent with patient: 15-24 minutes Medications reviewed and adjusted accordingly: Yes Anticipated discharge: Home - Inpatient Certification Based on my medical assessment, after consideration of the patient's comorbidities, presenting symptoms, or acuity I expect that the services needed warrant INPATIENT care.: Yes I certify that my determination is in accordance with my understanding of Medicare's requirements for reasonable and necessary INPATIENT services [42 CFR 412.3e].: Yes Medical Necessity: Need for IV Antibiotics - Plan Summary Plan Summary: DISCHARGE HOME WHEN BLOOD CULTURES HAVE CLEARED
--- NOTE | 2017-11-01 17:01 | PDOC PROGRESS REPORT ---
Subjective Progress Note for:: 11/01/17 Subjective:: Patient seen on rounds this morning. 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 Denies fever chills or sweats. Reason For Visit: RIGHT HAND INFECTION,INTRAVENOUS DRUG ABUSE Physical Exam Vital Signs: Temp Pulse Resp BP Pulse Ox 98.1 F 63 18 122/79 98 11/01/17 16:27 11/01/17 16:27 11/01/17 16:27 11/01/17 16:27 11/01/17 16:27 Pulse Oximeter Continuous Start: 10/30/17 10: 13 Freq: RTQ4 Status: Active Document 11/01/17 12:15 [facility] (Rec: 11/01/17 13:01 [facility] [email or web address]) Pulse Oximetry Assessment Oxygen Saturation (92-100) 95 Oxygen Delivery Method Room Air Equipment Usage Equipment in Use Continuous SpO2 Machine # 10 Intake & Output 10/31/17 11/01/17 11/02/17 06:59 06:59 06:59 Intake Total 1740 Balance 1740 Musculoskeletal exam: PRESENT: other - Right hand: Patient continues to rest in a flexed position at the PIP joints no evidence of clawing. Patient has discomfort with palpation throughout the tips of the fingers Refill less than 2 seconds with normal Baljit's refilling test. There is superficial pustules along the hypo-thenar eminence no gross erythema. Postsurgical changes noted on the second and third metacarpals. Patient does have intact IP/MP joint flexion however limited secondary to pain. No palpable fluctuance or swelling. No sign of compartment syndrome Results Laboratory Results: 11/01/17 08:00 11/01/17 08:00 11/01/17 11/01/17 08:00 08:00 WBC 7.6 RBC 4.68 Hgb 12.8 L Hct 36.8 L MCV 79 L MCH 27.3 MCHC 34.7 RDW 13.4 Plt Count 259 Sodium 144.0 Potassium 3.9 Chloride 110 H Carbon Dioxide 25 Anion Gap 9 BUN 21 H Creatinine 0.69 Est GFR ( Amer) > 60 Est GFR (Non-Af Amer) > 60 Glucose 101 Calcium 9.0 Impressions: Upper Extremity MRI 10/31/17 00:00 IMPRESSION: Healed 2nd and 3rd metacarpal fractures. Hardware failure with fractured 2nd metacarpal fixation plate and fractured 3rd metacarpal screw. Very mild subcutaneous edema over the thenar eminence and dorsal hand. Guidance Fluoroscopy 11/01/17 00:00 IMPRESSION: SUCCESSFUL PLACEMENT OF A 5 FR DUAL LUMEN 40 CM PICC IN THE LEFT BASILIC VEIN. Interventional Vascular Procedure 11/01/17 00:00 IMPRESSION: SUCCESSFUL PLACEMENT OF A 5 FR DUAL LUMEN 40 CM PICC IN THE LEFT BASILIC VEIN. PICC Line Insertion 11/01/17 00:00 IMPRESSION: SUCCESSFUL PLACEMENT OF A 5 FR DUAL LUMEN 40 CM PICC IN THE LEFT BASILIC VEIN. 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 Up to this point diagnostic studies have been essentially negative including arterial duplex and MRI of the hand. There is post traumatic changes of the metacarpals which is likely not contributing to patient's current condition. Furthermore patient has 1 out of 2 positive blood cultures which may be contaminant. In the meantime he will continue on IV vancomycin and Rocephin I have also recommended consultation from Dr. Raya for further evaluation and possible guidance in terms of patient's right hand pain which I feel is vascular nature however underlying neuropathic issue remains within the differential if there is a neuropathic issue however would recommend observation. Given the fact patient' s MRI and arterial studies I do not feel operative intervention is warranted for patient's right hand currently and after discussing the case with the hospitalist decision was made to transfer to the hospitalist service.
[2017-11-01] MEDS: ONDANSETRON HCL INJ/PF 4 MG/2 ML SDV IV PRN (23:08)
[2017-11-02] MEDS: KETOROLAC TROMETHAMINE INJ/PF 30 MG/1 ML SDV IV PRN ×3 (03:02→20:50)
[2017-11-02] MEDS: PIPERACILLIN SODIUM/TAZOBACTAM 4.5 GM in NORMAL SALINE 100 ML IV SCH ×4 (03:02→20:10)
[2017-11-02] MEDS: OXYCODONE-ACETAMINOPHEN 5-325 MG TABLET PO PRN ×3 (06:01→19:15)
[2017-11-02 06:38] LABS: HEMATOCRIT 36.3 % (37.9-51.0); HEMOGLOBIN 12.7 g/dL (13.5-17.0); MEAN CORPUSCULAR HEMOGLOBIN 27.5 pg (27.0-33.4); MEAN CORPUSCULAR VOLUME 79 fl (80-97); PLATELET COUNT 281 10^3/uL (150-450); RED BLOOD COUNT 4.62 10^6/uL (4.35-5.55); RED CELL DISTRIBUTION WIDTH 13.2 % (11.5-14.0); WHITE BLOOD COUNT 8.7 10^3/uL (4.0-10.5)
[2017-11-02] MEDS: VANCOMYCIN HCL 1,000 MG in DEXTROSE 5%-WATER 250 ML IV SCH ×3 (07:04→21:47)
[2017-11-02] MEDS: CLOPIDOGREL BISULFATE 75 MG TABLET PO SCH (10:22)
[2017-11-02] MEDS: NICOTINE 7 MG/24 HR PATCH.TD24 TD SCH (10:22)
[2017-11-02] MEDS: SENNOSIDES/DOCUSATE 8.6-50 MG 1 EACH TABLET PO SCH ×2 (10:22→18:20)
--- NOTE | 2017-11-02 16:36 | PDOC PROGRESS REPORT ---
Subjective Progress Note for:: 11/02/17 Subjective:: KASEY FREY is a 37 y.o. M who presented to the ER with R hand swelling and admitted to ER MD that he injected suboxone into his brachial artery at the upper arm level. The patient was evaluated by Ortho, Dr. Boogie states there is no surgical intervention. Vascular, Dr. Ibanez, was consulted, awaiting his recommendations. Patient seen this morning on rounds, he is resting comfortably in bed. He continues to complain of limited ROM to his five digits. Swelling to the dorsal aspect of the R hand seems improved. Currently on Toradol, Percocet for pain relief. No fever or chills. MRI R hand and Arterial US of RUE completed, results benign for both studies. 1 blood culture bottle + for MSSA. Currently waiting for results of re-culture (11/01/2017). Continue current treatment plan. Reason For Visit: RIGHT HAND INFECTION,INTRAVENOUS DRUG ABUSE Physical Exam Vital Signs: Temp Pulse Resp BP Pulse Ox 98.2 F 67 16 119/68 97 11/02/17 12:53 11/02/17 12:53 11/02/17 12:53 11/02/17 12:53 11/02/17 12:53 Pulse Oximeter Continuous Start: 10/30/17 10: 13 Freq: RTQ4 Status: Active Document 11/02/17 11:23 [facility] (Rec: 11/02/17 11:23 [facility] [email or web address]) Pulse Oximetry Assessment Equipment Usage Equipment Standby Continuous SpO2 Machine # 10 Intake & Output 11/01/17 11/02/17 11/03/17 06:59 06:59 06:59 Intake Total 1740 1000 Balance 1740 1000 General appearance: PRESENT: no acute distress, well-developed, well-nourished Head exam: PRESENT: atraumatic, normocephalic Eye exam: PRESENT: conjunctiva pink, EOMI, PERRLA. ABSENT: scleral icterus Ear exam: PRESENT: normal external ear exam Mouth exam: PRESENT: moist, tongue midline Neck exam: ABSENT: carotid bruit, JVD, lymphadenopathy, thyromegaly Respiratory exam: PRESENT: clear to auscultation lucho. ABSENT: rales, rhonchi, wheezes Cardiovascular exam: PRESENT: RRR. ABSENT: diastolic murmur, rubs, systolic murmur Pulses: PRESENT: normal dorsalis pedis pul Vascular exam: PRESENT: normal capillary refill. ABSENT: pallor GI/Abdominal exam: PRESENT: normal bowel sounds, soft. ABSENT: distended, guarding, mass, organolmegaly, rebound, tenderness Rectal exam: PRESENT: deferred Extremities exam: PRESENT: joint swelling - dorsal aspect of R hand. ABSENT: calf tenderness, full ROM - limited rom to all 5 digits in r hand, pedal edema Musculoskeletal exam: ABSENT: full ROM - limited rom to all 5 digits in r hand Neurological exam: PRESENT: alert, awake, oriented to person, oriented to place , oriented to time, oriented to situation Psychiatric exam: PRESENT: appropriate affect, normal mood Skin exam: PRESENT: dry, intact, warm. ABSENT: cyanosis, rash Results Laboratory Results: 11/02/17 06:15 11/02/17 06:15 18 11/02/17 06:15 06:15 WBC 8.7 RBC 4.62 Hgb 12.7 L Hct 36.3 L MCV 79 L MCH 27.5 MCHC 35.0 RDW 13.2 Plt Count 281 Creatinine 0.75 Est GFR ( Amer) > 60 Est GFR (Non-Af Amer) > 60 Impressions: Upper Extremity MRI 10/31/17 00:00 IMPRESSION: Healed 2nd and 3rd metacarpal fractures. Hardware failure with fractured 2nd metacarpal fixation plate and fractured 3rd metacarpal screw. Very mild subcutaneous edema over the thenar eminence and dorsal hand. Guidance Fluoroscopy 11/01/17 00:00 IMPRESSION: SUCCESSFUL PLACEMENT OF A 5 FR DUAL LUMEN 40 CM PICC IN THE LEFT BASILIC VEIN. Interventional Vascular Procedure 11/01/17 00:00 IMPRESSION: SUCCESSFUL PLACEMENT OF A 5 FR DUAL LUMEN 40 CM PICC IN THE LEFT BASILIC VEIN. PICC Line Insertion 11/01/17 00:00 IMPRESSION: SUCCESSFUL PLACEMENT OF A 5 FR DUAL LUMEN 40 CM PICC IN THE LEFT BASILIC VEIN. Status: Imported from PACS Assessment & Plan - Diagnosis (1) Cellulitis of hand, right Is this a current diagnosis for this admission?: Yes Plan: Positive blood cultures (MSSA in 1 bottle), concerned that this could be contaminant. Re-culture done, waiting for results. Continue broad spectrum antibiotics at this time. 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 Counseled on the dangers of this behavior as well as the extreme danger of injecting oral medication into his arteries. Patient states understanding. Asking for outpatient drug rehab programs. Very concerned about non-compliance issues if patient is discharged too soon. Will discuss treatment options with discharge planning. - Time Time Spent with patient: 15-24 minutes Medications reviewed and adjusted accordingly: Yes Anticipated discharge: Home Within: within 48 hours - Inpatient Certification Based on my medical assessment, after consideration of the patient's comorbidities, presenting symptoms, or acuity I expect that the services needed warrant INPATIENT care.: Yes I certify that my determination is in accordance with my understanding of Medicare's requirements for reasonable and necessary INPATIENT services [42 CFR 412.3e].: Yes Medical Necessity: Need for IV Antibiotics, Risk of Complication if Not Cared For in Hospital - Plan Summary Plan Summary: Discharge home if re-cultures are clear. 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
[2017-11-03] MEDS: OXYCODONE-ACETAMINOPHEN 5-325 MG TABLET PO PRN ×4 (01:31→20:26)
[2017-11-03] MEDS: PIPERACILLIN SODIUM/TAZOBACTAM 4.5 GM in NORMAL SALINE 100 ML IV SCH ×4 (02:24→20:27)
[2017-11-03] MEDS: VANCOMYCIN HCL 1,000 MG in DEXTROSE 5%-WATER 250 ML IV SCH ×3 (05:13→22:51)
[2017-11-03] MEDS: KETOROLAC TROMETHAMINE INJ/PF 30 MG/1 ML SDV IV PRN ×3 (05:14→22:51)
[2017-11-03] MEDS ORDERED: ONDANSETRON HCL INJ/PF 4 MG/2 ML SDV IV PRN (10:00)
[2017-11-03] MEDS: SENNOSIDES/DOCUSATE 8.6-50 MG 1 EACH TABLET PO SCH ×2 (10:44→17:42)
[2017-11-03] MEDS: CLOPIDOGREL BISULFATE 75 MG TABLET PO SCH (10:44)
[2017-11-03] MEDS: NICOTINE 7 MG/24 HR PATCH.TD24 TD SCH (10:44)
--- NOTE | 2017-11-03 19:10 | PDOC PROGRESS REPORT ---
Subjective Progress Note for:: 11/03/17 Subjective:: KASEY FREY is a 37 y.o. M who presented to the ER with R hand swelling and admitted to ER MD that he injected suboxone into his brachial artery at the upper arm level. The patient was evaluated by Ortho, Dr. Boogie states there is no surgical intervention. Vascular, Dr. Ibanez, was consulted, awaiting his recommendations. Patient seen this morning on rounds, he is resting comfortably in bed. He continues to complain of limited ROM to his five digits. Swelling to the dorsal aspect of the R hand seems improved. Currently on Toradol, Percocet for pain relief. No fever or chills. MRI R hand and Arterial US of RUE completed, results benign for both studies. 1 blood culture bottle + for MSSA. Currently waiting for results of re-culture (11/01/2017). Continue current treatment plan. Plan to discharge home tomorrow. Reason For Visit: RIGHT HAND INFECTION,INTRAVENOUS DRUG ABUSE Physical Exam Vital Signs: Temp Pulse Resp BP Pulse Ox 97.9 F 56 L 18 122/75 99 11/03/17 15:22 11/03/17 15:22 11/03/17 15:22 11/03/17 15:22 11/03/17 16:00 Pulse Oximeter Continuous Start: 10/30/17 10: 13 Freq: RTQ4 Status: Active Document 11/03/17 16:00 [facility] (Rec: 11/03/17 18:40 [facility] [email or web address]) Pulse Oximetry Assessment Oxygen Saturation (92-100) 99 Oxygen Delivery Method Room Air Fraction of Inspired Oxygen (FIO2) 21 Equipment Usage Equipment Standby Continuous SpO2 Machine # [id number] Intake & Output 11/02/17 11/03/17 11/04/17 06:59 06:59 06:59 Intake Total 3843 612 6576 Balance 3815 220 4371 General appearance: PRESENT: no acute distress, well-developed, well-nourished Head exam: PRESENT: atraumatic, normocephalic Eye exam: PRESENT: conjunctiva pink, EOMI, PERRLA. ABSENT: scleral icterus Ear exam: PRESENT: normal external ear exam Mouth exam: PRESENT: moist, tongue midline Neck exam: ABSENT: carotid bruit, JVD, lymphadenopathy, thyromegaly Respiratory exam: PRESENT: clear to auscultation lucho. ABSENT: rales, rhonchi, wheezes Cardiovascular exam: PRESENT: RRR. ABSENT: diastolic murmur, rubs, systolic murmur Pulses: PRESENT: normal dorsalis pedis pul Vascular exam: PRESENT: normal capillary refill GI/Abdominal exam: PRESENT: normal bowel sounds, soft. ABSENT: distended, guarding, mass, organolmegaly, rebound, tenderness Rectal exam: PRESENT: deferred Extremities exam: PRESENT: full ROM, joint swelling - R hand and all 5 fingers. ABSENT: calf tenderness, clubbing, pedal edema Musculoskeletal exam: PRESENT: ambulatory, full ROM Neurological exam: PRESENT: alert, awake, oriented to person, oriented to place , oriented to time, oriented to situation Psychiatric exam: PRESENT: appropriate affect, normal mood Skin exam: PRESENT: dry, intact, normal color, warm Results Laboratory Results: 11/02/17 06:15 11/02/17 06:15 Impressions: Upper Extremity MRI 10/31/17 00:00 IMPRESSION: Healed 2nd and 3rd metacarpal fractures. Hardware failure with fractured 2nd metacarpal fixation plate and fractured 3rd metacarpal screw. Very mild subcutaneous edema over the thenar eminence and dorsal hand. Guidance Fluoroscopy 11/01/17 00:00 IMPRESSION: SUCCESSFUL PLACEMENT OF A 5 FR DUAL LUMEN 40 CM PICC IN THE LEFT BASILIC VEIN. Interventional Vascular Procedure 11/01/17 00:00 IMPRESSION: SUCCESSFUL PLACEMENT OF A 5 FR DUAL LUMEN 40 CM PICC IN THE LEFT BASILIC VEIN. PICC Line Insertion 11/01/17 00:00 IMPRESSION: SUCCESSFUL PLACEMENT OF A 5 FR DUAL LUMEN 40 CM PICC IN THE LEFT BASILIC VEIN. Status: Imported from PACS Assessment & Plan - Diagnosis (1) Cellulitis of hand, right Is this a current diagnosis for this admission?: Yes Plan: Positive blood cultures (MSSA in 1 bottle), concerned that this could be contaminant. Re-culture done, waiting for results. Continue broad spectrum antibiotics at this time. 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 Counseled on the dangers of this behavior as well as the extreme danger of injecting oral medication into his arteries. Patient states understanding. Asking for outpatient drug rehab programs. Very concerned about non-compliance issues if patient is discharged too soon. Will discuss treatment options with discharge planning. - Time Time Spent with patient: 15-24 minutes Medications reviewed and adjusted accordingly: Yes Anticipated discharge: Home Within: within 24 hours - Inpatient Certification Based on my medical assessment, after consideration of the patient's comorbidities, presenting symptoms, or acuity I expect that the services needed warrant INPATIENT care.: Yes I certify that my determination is in accordance with my understanding of Medicare's requirements for reasonable and necessary INPATIENT services [42 CFR 412.3e].: Yes Medical Necessity: Need for IV Antibiotics, Risk of Complication if Not Cared For in Hospital - Plan Summary Plan Summary: Waiting for culture results. Likely discharge home tomorrow.
[2017-11-04] MEDS: PIPERACILLIN SODIUM/TAZOBACTAM 4.5 GM in NORMAL SALINE 100 ML IV SCH ×2 (02:32→09:49)
[2017-11-04] MEDS ORDERED: NORMAL SALINE 10 ML SDV (AFTER EACH USE) IV PRN (03:31)
[2017-11-04] MEDS: OXYCODONE-ACETAMINOPHEN 5-325 MG TABLET PO PRN ×2 (06:13→12:34)
[2017-11-04] MEDS: VANCOMYCIN HCL 1,000 MG in DEXTROSE 5%-WATER 250 ML IV SCH ×2 (06:14→13:25)
[2017-11-04] MEDS: CLOPIDOGREL BISULFATE 75 MG TABLET PO SCH (09:50)
[2017-11-04] MEDS: NICOTINE 7 MG/24 HR PATCH.TD24 TD SCH (09:50)
[2017-11-04] MEDS ORDERED: NORMAL SALINE 10 ML SDV (SCHEDULED) IV SCH (10:00)
[2017-11-04] MEDS: SENNOSIDES/DOCUSATE 8.6-50 MG 1 EACH TABLET PO SCH (10:00)
[2017-11-04] MEDS ORDERED: KETOROLAC TROMETHAMINE INJ/PF 30 MG/1 ML SDV IV PRN (10:12)
[2017-11-04 15:18] VITALS: BP 119/58
[2017-11-04] MEDS ORDERED: DOXYCYCLINE HYCLATE 100 MG TABLET PO SCH (22:00)
[2017-11-04] MEDS ORDERED: CEFUROXIME 500 MG TABLET PO SCH (22:00)
[2017-11-05] MEDS ORDERED: GABAPENTIN 100 MG CAPSULE PO SCH (10:00)
--- NOTE | 2017-11-07 10:43 | PDOC CONSULTATION ---
Consultation Consult Date: 11/03/17 History of Present Illness Admission Date/PCP: 10/30/17 03:01 The patient complains of pain in the right upper extremity. Tingling, sharp. Mostly of the hand. Patient complains of: Pain in the right hand and upper extremity. Quite severe. Tingling in nature. Started after he injected in his right arm on the Tuesday before admission. The pain got worse overnight and precipitated his arrival in the emergency room and subsequent admission. He admits to injecting Suboxone 2-3 times daily for the last 2 or so years. He has switched from using the veins of his left upper extremity as he is concerned about them being visible in the summer months. He appears to be injecting blindly into the right upper extremity. He did note that cook helper meat colored blood emerged from the needle on this last injection on the Tuesday before admission and the defect felt a sharp tingling pain going down into the hand. History of Present Illness: KASEY FREY is a 37 year old male Right upper extremity pain. Past Medical History Cardiac Medical History: Reports: None Pulmonary Medical History: Reports: None EENT Medical History: Reports: None Neurological Medical History: Reports: None Endocrine Medical History: Reports: None Renal/ Medical History: Reports: None Malignancy Medical History: Reports: None GI Medical History: Reports: None Musculoskeltal Medical History: Reports: None Skin Medical History: Reports: None Psychiatric Medical History: Reports: None Traumatic Medical History: Reports: None Hematology: Reports: Anemia Infectious Medical History: Reports: None Past Surgical History Past Surgical History: Reports: None Social History Lives with: Spouse/Significant other Smoking Status: Current Every Day Smoker Cigarettes Packs Per Day: 1 Frequency of Alcohol Use: Rare Hx Recreational Drug Use: Yes Drugs: Other - Advance Directive Resuscitation Status: Full Code Family History Family History: Hypertension Parental Family History Reviewed: No Children Family History Reviewed: No Sibling(s) Family History Reviewed.: No Medication/Allergy Home Medications: Cefuroxime Axetil [Ceftin 500 mg Tablet] 500 mg PO BID 5 Days #10 tablet Doxycycline Hyclate [Vibramycin 100 mg Tablet] 100 mg PO Q12 5 Days #10 tablet 11/04/17 Gabapentin [Neurontin 100 mg Capsule] 100 mg PO DAILY #20 capsule 11/04/17 Allergies/Adverse Reactions: No Known Allergies Allergy (Verified 10/29/17 20:39) Physical Exam Vital Signs: Temp Pulse Resp BP Pulse Ox 98.4 F 76 18 125/95 H 97 11/02/17 20:18 11/02/17 20:18 11/02/17 20:18 11/02/17 20:18 11/02/17 20:18 Pulse Oximeter Continuous Start: 10/30/17 10: 13 Freq: RTQ4 Status: Active Document 11/03/17 04:00 [facility] (Rec: 11/03/17 04:03 [facility] [email or web address]) Pulse Oximetry Assessment Equipment Usage Equipment Standby Continuous SpO2 Machine # 10 Intake & Output 11/02/17 11/03/17 11/04/17 06:59 06:59 06:59 Intake Total 1000 930 Balance 1000 930 Additional comments: Constitutional: Well-developed well-nourished gentleman. No apparent acute distress. Eyes: Mucous membranes pink and moist, pupils equal and reactive to light. Conjunctiva normal. Cornea normal. ENT: Hearing grossly normal. External pinna normal to inspection. Teeth intact. Tongue normal to inspection. Cardiac: Heart sounds 1 and 2 normal, no murmurs. Respiratory breath sounds are present bilaterally, normal. Normal respiratory effort. Skin: Significant for small petechiae or embolic lesions in the right hand. Splinter hemorrhage and nails. Abdomen: Soft, nontender. Liver and spleen are not palpably enlarged. Bowel sounds are normal. No hernia noted. Surgical scars present from abdominal expiration about 10 years ago. Psychiatric: Judgment, memory, insight seem normal. Mood is pleasant and appropriate. Extremities: Upper extremities show normal range of movement on the left. On the right there is limitation in extension in the fingers of the hand. Also subtle but definite swelling of that hand in comparison to the left. The limitation in extension seems chronic and may be due to to a number of previous fractures and injuries. Pulses excellent, present noted to the radial arteries. Capillary refill normal. No cyanosis noted. No muscle wasting noted. Skin changes as noted above. Results Laboratory Results: 11/02/17 06:15 11/02/17 06:15 Impressions: Upper Extremity MRI 10/31/17 00:00 IMPRESSION: Healed 2nd and 3rd metacarpal fractures. Hardware failure with fractured 2nd metacarpal fixation plate and fractured 3rd metacarpal screw. Very mild subcutaneous edema over the thenar eminence and dorsal hand. Guidance Fluoroscopy 11/01/17 00:00 IMPRESSION: SUCCESSFUL PLACEMENT OF A 5 FR DUAL LUMEN 40 CM PICC IN THE LEFT BASILIC VEIN. Interventional Vascular Procedure 11/01/17 00:00 IMPRESSION: SUCCESSFUL PLACEMENT OF A 5 FR DUAL LUMEN 40 CM PICC IN THE LEFT BASILIC VEIN. PICC Line Insertion 11/01/17 00:00 IMPRESSION: SUCCESSFUL PLACEMENT OF A 5 FR DUAL LUMEN 40 CM PICC IN THE LEFT BASILIC VEIN. Assessment & Plan - Diagnosis (1) Neuritis of upper extremity Plan: Possibly introduction of medication such as gabapentin. The diagnosis of neuritis is based on the patient's description of tingling when he still a needle into his right arm. This is a likely cause of the pain which she has been experiencing since. It is probably self-limiting and if not been a neurological evaluation would be indicated. (2) Cellulitis of hand, right Is this a current diagnosis for this admission?: Yes (3) IV drug abuse Is this a current diagnosis for this admission?: Yes (4) Septic arterial embolism Is this a current diagnosis for this admission?: Yes - Plan Summary Plan Summary: In this patient with fairly acute onset of tingling and persisting pain in the right upper extremity there is a confused picture. There is an element of infection with MSSA cultured from the blood vesicles and possible splinter hemorrhages in the right hand. There is also hardware from prior hand fractures over the years. There is also the history of injecting Suboxone intravenously and possibly arterially 3 times a day for the last 2 years or so. In addition he may not have forthcoming with his parents regarding these issues. Given the findings of the arterial duplex study and excellent pulses down to the radial and ulnar artery, excellent capillary refill I am confident that there is no significant arterial insufficiency. I believe that much of the pain is due to neuritis and reduced pain threshold due to persistent use of narcotic. I believe that the addition of gabapentin or similar medication may be of help. Consideration to be given to septic emboli and workup accordingly. I will leave this up to his primary physicians. There may be a place for referring this patient possibly as an outpatient to a tertiary institution for a deeper look into this pathology, possibly involving a neurologist which we did not currently have on staff.
--- NOTE | 2017-11-10 14:12 | PDOC DISCHARGE SUMMARY ---
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 Is this a current diagnosis for this admission?: Yes (3) IV drug abuse Is this a current diagnosis for this admission?: Yes - Additional Information Resuscitation Status: Full Code Discharge Diet: As Tolerated Discharge Activity: Activity As Tolerated Prescriptions: Cefuroxime Axetil [Ceftin 500 mg Tablet] 500 mg PO BID 5 Days #10 tablet Doxycycline Hyclate [Vibramycin 100 mg Tablet] 100 mg PO Q12 5 Days #10 tablet Gabapentin [Neurontin 100 mg Capsule] 100 mg PO DAILY #20 capsule Home Medications: Cefuroxime Axetil [Ceftin 500 mg Tablet] 500 mg PO BID 5 Days #10 tablet Doxycycline Hyclate [Vibramycin 100 mg Tablet] 100 mg PO Q12 5 Days #10 tablet 11/04/17 Gabapentin [Neurontin 100 mg Capsule] 100 mg PO DAILY #20 capsule 11/04/17 History of Present Illness History of Present Illness: KASEY FREY is a 37 year old male who presents to emergency room with pain and swelling in his right hand. After discussing this issue with the emergency room he admitted to injecting Suboxone into his brachial artery at the upper arm level. He is having no pain or issues with the injection site but complains of significant discomfort discomfort mainly in his fingertips. Patient has been receiving pain medication and started on warm compresses along with aspirin. He does note symptoms in his hand and thumb have notably improved but continues to have residual discomfort in the fingertips which he describes as burning type pain. Current pain 11/29. Patient denies chest pain or shortness of breath. Hospital Course Hospital Course: 37 y.o. M with a PMH of illicit drug use presented to [facility] after he injected Suboxone in his right arm 48 hrs prior to admission. The pain became increasingly worse, which precipitated his arrival in the emergency room and subsequent admission. He admits to injecting Suboxone 2-3 times daily for the last 2 or so years. He has switched from using his antecubital veins to using the veins of his left upper extremity as he is concerned about them being visible in the summer months. He appears to be injecting blindly into the right upper extremity. He did note that health promotion specialist colored blood emerged from the needle on this last injection on the Tuesday before admission and felt a sharp tingling pain going down into the hand. The patient was started on empiric antibiotic coverage for possible bacteremia and/or septic emboli. MRI R hand completed to evaluate for occult abscess, and Arterial US of RUE completed to evaluate for pseudoaneurysm, results benign for both studies. Initial blood cultures positive blood cultures (MSSA in 1 bottle) , concerned that this could be contaminant. When re-cultured, the results were negative. The patient remained afebrile and never mounted an elevated WBC count , he remained non-toxic appearing throughout his hospital stay. Given the lack of findings of his radiology studies, and the normalcy of his physical exam (+2 brachial, radial, and ulnar pulses), it was determined that the patient had not suffered an arterial injury. Additionally, he was not infected as evidence by his normal blood cultures, normal WBC count, and lack of fever. The conclusion was made that the patient's hand pain is likely due to neuritis stemming from previous injuries to the R hand and reduced pain threshold secondary to his chronic narcotic use. The patient was discharged home with a prescription for gabapentin to help alleviate his neuropathic pain. Additionally, he was provided information about outpatient drug rehab programs and a referral to the [facility] in [place] ([facility]). Discharge instructions were thoroughly explained to the patient and he stated understanding. Physical Exam Vital Signs: Temp Pulse Resp BP Pulse Ox 97.8 F 52 L 18 119/58 L 98 11/04/17 15:17 11/04/17 15:17 11/04/17 15:17 11/04/17 15:17 11/04/17 15:17 Pulse Oximeter Continuous Start: 10/30/17 10: 13 Freq: RTQ4 Status: Discharge Document 11/04/17 12:38 [facility] [place] (Rec: 11/04/17 12:40 [facility] [place] [email or web address]) Pulse Oximetry Assessment Oxygen Saturation (92-100) 98 Oxygen Delivery Method Room Air Equipment Usage Equipment Standby Continuous SpO2 Machine # 10 Additional RT Notes Other pt continues to delcine to wear cont spo2 Results Laboratory Results: 11/02/17 06:15 11/02/17 06:15 Impressions: Upper Extremity MRI 10/31/17 00:00 IMPRESSION: Healed 2nd and 3rd metacarpal fractures. Hardware failure with fractured 2nd metacarpal fixation plate and fractured 3rd metacarpal screw. Very mild subcutaneous edema over the thenar eminence and dorsal hand. Guidance Fluoroscopy 11/01/17 00:00 IMPRESSION: SUCCESSFUL PLACEMENT OF A 5 FR DUAL LUMEN 40 CM PICC IN THE LEFT BASILIC VEIN. Interventional Vascular Procedure 11/01/17 00:00 IMPRESSION: SUCCESSFUL PLACEMENT OF A 5 FR DUAL LUMEN 40 CM PICC IN THE LEFT BASILIC VEIN. PICC Line Insertion 11/01/17 00:00 IMPRESSION: SUCCESSFUL PLACEMENT OF A 5 FR DUAL LUMEN 40 CM PICC IN THE LEFT BASILIC VEIN. Status: Imported from PACS Qualifiers - * PATIENT BEING DISCHARGED WITH ANY OF THE FOLLOWING DIAGNOSIS: No Plan Discharge Plan: DISCHARGE HOME WITH PRESCRIPTION FOR GABAPENTIN. ENCOURAGE FOLLOW UP AT [facility]. EXTENSIVE COUNSELING PROVIDED TO THE PATIENT REGARDING THE DANGERS OF IV DRUG ABUSE, HE STATED THAT HE WANTED TO QUIT USING SUBOXONE BUT THAT IT 'WAS VERY DIFFICULT, HARDER THAN QUITTING PERCOCET.' COOK SAUCEJERAMIE, PROVIDED INFORMATION ABOUT OUTPATIENT DRUG REHAB PROGRAMS SINCE THE PATIENT STATED HE COULD NOT AFFORD TO TAKE TIME OFF FROM WORK TO ATTEND AN INPATIENT REHAB FACILITY. Time Spent: Less than 30 Minutes
== END 2017-11-04 16:07 | disposition home or self-care (01) | DRG 74 ==
LOC: ER 20:39 → UNDOADMIN 10-30 03:01 → EH 10-30 03:01 → 2N 10-30 06:39 → EH 10-30 06:39
PROVIDERS: ADMIT Internal Medicine; ATTEND Internal Medicine
PROC: 02HV33Z Insertion of Infusion Device into Superior Vena Cava, Percutaneous Approach (ICD-10-PCS; principal; 2017-11-01)
PROC: B548ZZA Ultrasonography of Superior Vena Cava, Guidance (ICD-10-PCS; 2017-11-01)
DX: M79.2 Neuralgia and neuritis, unspecified (principal); F11.10 Opioid abuse, uncomplicated; F17.210 Nicotine dependence, cigarettes, uncomplicated; Z87.81 Personal history of (healed) traumatic fracture; X58.XXXS Exposure to other specified factors, sequela
CPT/HCPCS: 36415; 36569; 76937; 77001; 80048; 80053; 80202; 80307; 82565; 85025; 85027; 85652; 86140; 87040; 87077; 87186; 93931; 94762; 94799; 96365; 96366; 96368; 96375; 99284; A9576; J0696; J1642; J1885; J2405; J2543; J3370; J3490; J7060

== ENCOUNTER 2018-08-28 11:10 | Emergency (ER) | payer SELFPAY ==
[2018-08-28] MEDS ORDERED: NORMAL SALINE 1000 ML 1,000 ML IV ONE (11:35)
[2018-08-28] MEDS ORDERED: ONDANSETRON HCL INJ/PF 4 MG/2 ML SDV IV ONE ×2 (11:35→13:52)
--- NOTE | 2018-08-28 11:37 | ER Document Report ---
ED Medical Screen (RME) - General Chief Complaint: Abdominal Pain Stated Complaint: ABDOMINAL PAIN Time Seen by Provider: 08/28/18 11:32 Mode of Arrival: Wheelchair Information source: Patient Notes: Patient is a 37-year-old male who presents the emergency department with onset of severe abdominal pain that started on . Patient reports associated vomiting, denies any diarrhea. Patient reports history of perforated duodenum approximately 10 years ago, states this feels the same. Patient unsure if he has had a fever. Patient appears to be in significant distress. Patient in a wheelchair in the position, abdominal exam deferred due to patient's position, called for room in the back and upgraded to PRIYA 2. I have greeted and performed a rapid initial assessment of this patient. A comprehensive ED assessment and evaluation of the patient, analysis of test results and completion of the medical decision making process will be conducted by additional ED providers. Dictation of this chart was performed using voice recognition software; therefore, there may be some unintended grammatical errors. TRAVEL OUTSIDE OF THE [place] 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
[2018-08-28] MEDS ORDERED: MORPHINE SULFATE 10 MG/ML INJ IV ONE (12:14)
[2018-08-28] MEDS ORDERED: LIDOCAINE 2% VISCOUS SOLN 20 ML UDCUP PO ONE (12:14)
[2018-08-28] MEDS ORDERED: MAG HYDROX/AL HYDROX/SIMETH SUSP 30 ML UDCUP PO ONE ×2 (12:14→13:51)
--- NOTE | 2018-08-28 13:05 | RADIOLOGY REPORT (SQ) ---
EXAM DESCRIPTION: KUB/ABDOMEN (SINGLE VIEW) COMPLETED DATE/TIME: 08/28/2018 12:46 pm REASON FOR STUDY: severe abd pain hx of perforation COMPARISON: CT abdomen pelvis 09/02/2016 Abdominal films 06/03/2009 NUMBER OF VIEWS: One view. TECHNIQUE: Supine radiographic image of the abdomen acquired. LIMITATIONS: None. FINDINGS: BOWEL GAS PATTERN: Normal bowel gas pattern. No dilated loops. Moderate stool throughout the colon CALCIFICATIONS: No suspicious calcifications. SOFT TISSUES: No gross mass or suggestion of organomegaly. HARDWARE: None in the abdomen. BONES: No acute fracture. No worrisome bone lesions. OTHER: No other significant finding. IMPRESSION: NO RADIOGRAPHIC EVIDENCE FOR ACUTE ABDOMINAL DISEASE. MODERATE CONSTIPATION TECHNICAL DOCUMENTATION: JOB ID: [id number] [email or web address]- All Rights Reserved Reading location - IP/workstation name: [email or web address]
[2018-08-28 13:25] LABS: ABSOLUTE LYMPHOCYTES (AUTO) 1.1 10^3/uL (0.5-4.7); ABSOLUTE MONOCYTES (AUTO) 0.4 10^3/uL (0.1-1.4); ABSOLUTE NEUT (AUTO) 7.2 10^3/uL (1.7-8.2); BASOPHILS % (AUTO) 0.2 % (0-2); EOSINOPHILS % (AUTO) 0.4 % (0-6); HEMATOCRIT 39.1 % (37.9-51.0); HEMOGLOBIN 13.6 g/dL (13.5-17.0); LYMPHOCYTES % (AUTO) 12.4 % (13-45); MEAN CORPUSCULAR HGB CONC 34.7 g/dL (32.0-36.0); MEAN CORPUSCULAR VOLUME 81 fl (80-97); MONOCYTES % (AUTO) 4.8 % (3-13); PLATELET COUNT 238 10^3/uL (150-450); RED BLOOD COUNT 4.84 10^6/uL (4.35-5.55); RED CELL DISTRIBUTION WIDTH 13.2 % (11.5-14.0); SEGMENTED NEUTROPHILS % (AUTO) 82.2 % (42-78); TOTAL CELLS COUNTED % (AUTO) 100 %; WHITE BLOOD COUNT 8.8 10^3/uL (4.0-10.5)
[2018-08-28] MEDS ORDERED: DEXTROSE 5%-LACTATED RINGERS 1,000 ML IV ONE ×2 (13:42→15:31)
[2018-08-28 13:44] LABS: ALANINE AMINOTRANSFERASE 62 U/L (21-72); ALKALINE PHOSPHATASE 45 U/L (38-126); ANION GAP 8 (5-19); ASPARTATE AMINO TRANSFERASE 42 U/L (17-59); BILIRUBIN,DIRECT 0.3 mg/dL (0.0-0.4); BILIRUBIN,TOTAL 0.4 mg/dL (0.2-1.3); BLOOD UREA NITROGEN 14 mg/dL (7-20); CALCIUM 9.3 mg/dL (8.4-10.2); CARBON DIOXIDE 25 mmol/L (22-30); CHLORIDE 107 mmol/L (98-107); GLUCOSE 109 mg/dL (75-110); LIPASE 49.8 U/L (23-300); POTASSIUM 4.1 mmol/L (3.6-5.0); SODIUM 139.7 mmol/L (137-145)
[2018-08-28] MEDS ORDERED: SUCRALFATE 1 GM TABLET PO ONE (13:51)
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
[2018-08-28 15:14] LABS: APPEARANCE,URINE CLEAR; BILIRUBIN,URINE NEGATIVE (NEGATIVE); COLOR,URINE YELLOW; GLUCOSE, URINE 150 mg/dL (NEGATIVE); KETONES,URINE 20 mg/dL (NEGATIVE); LEUKOCYTE ESTERASE,URINE NEGATIVE (NEGATIVE); NITRITE,URINE NEGATIVE (NEGATIVE); PROTEIN,URINE NEGATIVE (NEGATIVE); URINE SPECIFIC GRAVITY 1.021; UROBILINOGEN,URINE NEGATIVE mg/dL (<2.0)
[2018-08-28 15:43] LABS: URINE AMPHETAMINES SCREEN NEGATIVE; URINE BARBITURATES SCREEN UNCONFIRMED POSITIVE; URINE BENZODIAZEPINES SCREEN NEGATIVE; URINE COCAINE SCREEN UNCONFIRMED POSITIVE; URINE MARIJUANA (THC) SCREEN NEGATIVE; URINE METHADONE SCREEN NEGATIVE; URINE PHENCYCLIDINE SCREEN NEGATIVE
[2018-08-28 17:04] VITALS: BP 131/89
== END 2018-08-28 17:13 | disposition home or self-care (01) ==
LOC: ER 11:10
DX: K29.70 Gastritis, unspecified, without bleeding (principal); K59.00 Constipation, unspecified; R10.10 Upper abdominal pain, unspecified; R10.817 Generalized abdominal tenderness; R11.2 Nausea with vomiting, unspecified; F14.10 Cocaine abuse, uncomplicated; F17.290 Nicotine dependence, other tobacco product, uncomplicated; J45.909 Unspecified asthma, uncomplicated; Z87.19 Personal history of other diseases of the digestive system; Z79.899 Other long term (current) drug therapy
CPT/HCPCS: 96376; 99284; 96361; 96374; 96375; 36415; 83690; 85025; 80053; 81001; 80307; 74018; J3490; J2270; J2405; J7030

== ENCOUNTER 2019-02-08 17:21 | Inpatient (IN) | payer OTHER ==
--- NOTE | 2019-02-08 18:18 | ER Document Report ---
ED Medical Screen (RME) - General Chief Complaint: Arm Pain Stated Complaint: RIGHT ARM PAIN Time Seen by Provider: 02/08/19 18:06 Notes: Patient is a 38-year-old male who presents to the emergency department with a chief complaint of right upper arm pain. 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 It is tender to touch. Patient is a current everyday smoker. Exam: Tender right upper arm near axilla. I have greeted and performed a rapid initial assessment of this patient. A comprehensive ED assessment and evaluation of the patient, analysis of test results and completion of medical decision making process will be conducted by an additional ED providers. TRAVEL OUTSIDE OF THE [place] IN LAST 30 DAYS: No - Related Data Allergies/Adverse Reactions: No Known Allergies Allergy (Verified 08/28/18 11:21) Past Medical History - Social History Chew tobacco use (# tins/day): No Frequency of alcohol use: None Drug Abuse: None Pulmonary Medical History: Reports: Hx Asthma - Wheezes with colds and pollen season. Renal/ Medical History: Denies: Hx Peritoneal Dialysis Skin Medical History: Comment Only Hx MRSA - MRSA 02/13/2007 ABDOMEN Past Surgical History: Reports: Hx Abdominal Surgery - Perforated duodenal ulcer 09/30/2006., Hx Bowel Surgery - perforated bowel Physical Exam - Vital signs Vitals: Temp Pulse Resp BP Pulse Ox 99.1 F 106 H 16 118/67 96 02/08/19 17:26 02/08/19 17:26 02/08/19 17:26 02/08/19 17:26 02/08/19 17:26 Course - Vital Signs Vital signs: Temp Pulse Resp BP Pulse Ox 99.1 F 106 H 16 118/67 96 02/08/19 17:26 02/08/19 17:26 02/08/19 17:26 02/08/19 17:26 02/08/19 17:26 - Laboratory Result Diagrams: 02/08/19 18:48 02/08/19 18:48
[2019-02-08 18:58] LABS: ABSOLUTE EOSINOPHILS # (AUTO) 0.2 10^3/uL (0.0-0.6); ABSOLUTE LYMPHOCYTES (AUTO) 1.3 10^3/uL (0.5-4.7); ABSOLUTE MONOCYTES (AUTO) 0.6 10^3/uL (0.1-1.4); ABSOLUTE NEUT (AUTO) 9.4 10^3/uL (1.7-8.2); BASOPHILS % (AUTO) 0.3 % (0-2); EOSINOPHILS % (AUTO) 1.9 % (0-6); HEMATOCRIT 42.2 % (37.9-51.0); HEMOGLOBIN 14.4 g/dL (13.5-17.0); LYMPHOCYTES % (AUTO) 11.6 % (13-45); MEAN CORPUSCULAR HEMOGLOBIN 27.1 pg (27.0-33.4); MEAN CORPUSCULAR HGB CONC 34.2 g/dL (32.0-36.0); MEAN CORPUSCULAR VOLUME 79 fl (80-97); MONOCYTES % (AUTO) 4.9 % (3-13); PLATELET COUNT 261 10^3/uL (150-450); RED BLOOD COUNT 5.31 10^6/uL (4.35-5.55); RED CELL DISTRIBUTION WIDTH 13.7 % (11.5-14.0); SEGMENTED NEUTROPHILS % (AUTO) 81.3 % (42-78); TOTAL CELLS COUNTED % (AUTO) 100 %; WHITE BLOOD COUNT 11.6 10^3/uL (4.0-10.5)
[2019-02-08 19:09] LABS: INTERNATIONAL RATION (INR) 1.05; PROTHROMBIN TIME 13.7 SEC (11.4-15.4)
[2019-02-08 19:19] LABS: ANION GAP 9 (5-19); BLOOD UREA NITROGEN 14 mg/dL (7-20); CALCIUM 9.6 mg/dL (8.4-10.2); CARBON DIOXIDE 29 mmol/L (22-30); CHLORIDE 101 mmol/L (98-107); GLUCOSE 117 mg/dL (75-110); POTASSIUM 4.2 mmol/L (3.6-5.0)
[2019-02-08] MEDS ORDERED: AMOXICILLIN TR/POT CLAVULANATE 500-125 MG TAB PO ONE (19:35)
[2019-02-08] MEDS ORDERED: AMOXICILLIN TRIHYDRATE 500 MG CAPSULE PO ONE (19:35)
[2019-02-08] MEDS ORDERED: PIPERACILLIN/TAZOBACTAM 4.5 GM VIAL IV ONE (19:50)
[2019-02-08] MEDS ORDERED: VANCOMYCIN HCL INJ 1000 MG VIAL IV ONE (19:50)
--- NOTE | 2019-02-08 20:03 | ER Document Report ---
ED Extremity Problem, Upper - General Chief Complaint: Arm Pain Stated Complaint: RIGHT ARM PAIN Time Seen by Provider: 02/08/19 18:06 Mode of Arrival: Ambulatory Information source: Patient Notes: 38-year-old male presented to ED for red inflamed right upper arm. He states 3 days ago he had a lump in his bicep. He states yesterday it started to swell and then today it is very swollen and hard all the way to his axilla with lumps in his axilla. It is very tender to touch or movement. Patient had blood work and Doppler completed that was ordered in the pit area. Patient did not tell the previous provider that he was IV injecting Suboxone into this area 3 days ago. He states he has been doing it for a long time but the last time he used it was 3 days ago. He states he has had a prescription for Suboxone in the past but when it ran out he started getting it from friends on the street. He states he was never supposed to use it at [place] but he has been questioned it up and given it to himself IV. Patient is alert oriented respirations regular and unlabored speaking in full sentences. He states he smokes about 25 cigarettes a day. He denies using any alcohol. TRAVEL OUTSIDE OF THE [place] IN LAST 30 DAYS: No - HPI Patient complains to provider of: Pain - Not an abscess, Swelling, Right Onset: Other - 3 days ago Recent injury: No - IV drug push of Suboxone Where: Home, Indoors - Right now Quality of pain: Pressure Severity of pain: Moderate, Persistent, Worse Pain Level: 4 - Is Context: Other - With a history of IV drug use of Suboxone infection. Associated symptoms: Other - Erythematous pain swelling Exacerbated by: Movement, Exertion Relieved by: Nothing Similar symptoms previously: Yes Recently seen / treated by doctor: No - Related Data Allergies/Adverse Reactions: No Known Allergies Allergy (Verified 08/28/18 11:21) Past Medical History - General Information source: Patient - Social History Smoking Status: Current Every Day Smoker Chew tobacco use (# tins/day): No Frequency of alcohol use: None Drug Abuse: Prescription drugs - IV pushing Suboxone from the street Occupation: Interior trim on houses Lives with: Spouse/Significant other Family History: Hypertension Patient has suicidal ideation: No Patient has homicidal ideation: No - Past Medical History Cardiac Medical History: Reports: None Pulmonary Medical History: Reports: Hx Asthma - Wheezes with colds and pollen season. EENT Medical History: Reports: None Neurological Medical History: Reports: None Endocrine Medical History: Reports: None Renal/ Medical History: Reports: None Malignancy Medical History: Reports None GI Medical History: Reports: None Musculoskeletal Medical History: Reports Hx Musculoskeletal Trauma Skin Medical History: Comment Only Hx MRSA - MRSA 02/13/2007 ABDOMEN Psychiatric Medical History: Reports: None Traumatic Medical History: Reports: Hx Fractures - Right hand Infectious Medical History: Reports: None Past Surgical History: Reports: Hx Abdominal Surgery - Perforated duodenal ulcer 09/30/2006., Hx Bowel Surgery - perforated bowel Review of Systems - Review of Systems Constitutional: No symptoms reported EENT: No symptoms reported Cardiovascular: No symptoms reported Respiratory: No symptoms reported Gastrointestinal: No symptoms reported Genitourinary: No symptoms reported Male Genitourinary: No symptoms reported Musculoskeletal: No symptoms reported Skin: Change in color - Erythema from antecubital to the axilla right arm firm tender after injecting Suboxone IV from the street. Hematologic/Lymphatic: No symptoms reported Neurological/Psychological: No symptoms reported -: Yes All other systems reviewed and negative Physical Exam - Vital signs Vitals: Temp Pulse Resp BP Pulse Ox 99.1 F 106 H 16 118/67 96 02/08/19 17:26 02/08/19 17:26 02/08/19 17:26 02/08/19 17:26 02/08/19 17:26 Interpretation: Normal - General General appearance: Appears well, Alert - HEENT Head: Normocephalic, Atraumatic Eyes: Normal Pupils: PERRL - Respiratory Respiratory status: No respiratory distress Chest status: Nontender Breath sounds: Normal Chest palpation: Normal - Cardiovascular Rhythm: Regular Heart sounds: Normal auscultation Murmur: No - Abdominal Inspection: Normal Distension: No distension Bowel sounds: Normal Tenderness: Nontender Organomegaly: No organomegaly - Back Back: Normal, Nontender - Extremities General upper extremity: Normal ROM General lower extremity: Normal inspection, Nontender, Normal color, Normal ROM, Normal temperature, Normal weight bearing. No: Kitty's sign Arm: Tender, Other - Erythematous firm swollen area from antecubital to axilla on the right arm Elbow: Tender - Red and tender Forearm: Normal, Nontender Wrist: Normal, Nontender Hand: Normal, Nontender - is being told - Neurological Neuro grossly intact: Yes Cognition: Normal Orientation: AAOx4 [place] Coma Scale Eye Opening: Spontaneous [place] Coma Scale Verbal: Oriented [place] Coma Scale Motor: Obeys Commands [place] Coma Scale Total: 15 Speech: Normal Motor strength normal: LUE, RUE, LLE, RLE Sensory: Normal - Psychological Associated symptoms: Normal affect, Normal mood - Skin Skin Temperature: Warm Skin Moisture: Dry Skin Color: Normal Course - Re-evaluation Re-evalutation: 02/09/19 02:10 Earlier this evening and discussed this case with Dr. Clifford who recommended IV antibiotics and admission to hospitalist. I spoke with the hospitalist who sta cory that he would prefer I got a ultrasound of the arm but to go ahead and start vancomycin and Zosyn for the infection. He stated that the patient may have to go to surgery tonight. I did the ultrasound which did show a large abscess at the area of the IV drug use. Hospitalist did admit the patient and consulted surgery who came and saw the patient. Patient was given IV vancomycin and Zosyn IV fluids and was admitted to a medical floor for further treatment. - Vital Signs Vital signs: Temp Pulse Resp BP Pulse Ox 98.7 F 77 17 108/60 98 02/08/19 22:59 02/08/19 22:59 02/08/19 22:59 02/08/19 22:59 02/08/19 22:59 - Laboratory Result Diagrams: 02/08/19 18:48 02/08/19 18:48 Laboratory results interpreted by me: 02/08/19 02/08/19 02/08/19 18:48 18:48 18:48 WBC 11.6 H MCV 79 L Lymph % (Auto) 11.6 L Absolute Neuts (auto) 9.4 H Seg Neutrophils % 81.3 H APTT 59.0 H Glucose 117 H - Diagnostic Test Radiology reviewed: Image reviewed, Reports reviewed Discharge - Discharge Clinical Impression: Cellulitis of right upper arm, Abscess of right upper extremity, IV drug abuse Disposition: ADMITTED INPATIENT Admitting Provider: Ilya (Hospitalist) Unit Admitted: Medical Floor
[2019-02-08] MEDS ORDERED: SUCCINYLCHOLINE CHLORIDE INJ 200 MG/10 ML VIAL ONE (20:16)
[2019-02-08] MEDS ORDERED: LIDOCAINE 2% INJ-PF (20 MG/ML) 2 ML AMPUL ONE (20:16)
[2019-02-08] MEDS ORDERED: ONDANSETRON HCL INJ/PF 4 MG/2 ML SDV IV PRN (20:46)
[2019-02-08] MEDS ORDERED: TEMAZEPAM 15 MG CAPSULE PO PRN (20:46)
[2019-02-08] MEDS ORDERED: LEVALBUTEROL HCL NEB 0.63 MG/3 ML AMPUL NEB PRN (20:46)
[2019-02-08] MEDS ORDERED: MAG HYDROX/AL HYDROX/SIMETH SUSP 30 ML UDCUP PO PRN (20:46)
--- NOTE | 2019-02-08 20:49 | RADIOLOGY REPORT (SQ) ---
EXAM DESCRIPTION: US EXTREMITY MUSCULOSKELETAL LIMITED COMPLETED DATE/TME: 02/08/2019 19:51 CLINICAL HISTORY: 38 years, Male, right upper extremity infection Findings: Focused ultrasonography of the right upper arm is performed. There is a complex heterogeneous hypoechoic structure near the axilla, located within the muscles, measuring 5.3 x 2.0 x 2.0 cm. It is 1.3 cm deep. There is fluid within this region. There is an adjacent lymph node measuring 1.2 cm. Moderate diffuse edema in the upper arm as well. IMPRESSION: Right upper arm/axillary heterogeneous 5 cm fluid collection may represent hematoma and/or abscess. Adjacent lymph node as well.
[2019-02-08] MEDS ORDERED: ACETAMINOPHEN 325 MG TABLET PO PRN (21:01)
[2019-02-08] MEDS ORDERED: VANCOMYCIN HCL INJ 1000 MG VIAL IV SCH (21:15)
--- NOTE | 2019-02-08 21:26 | RADIOLOGY REPORT (SQ) ---
EXAM DESCRIPTION: US EXTREMITY VEINS UNILATERAL COMPLETED DATE/TME: 02/08/2019 18:15 CLINICAL HISTORY: 38 years, Male, RUE swelling COMPARISON: None. TECHNIQUE: Axial 2-D grayscale images of the right arm were acquired. Doppler was utilized. LIMITATIONS: The proximal brachial veins were poorly visualized secondary to soft tissue swelling in this area. FINDINGS: Visualized portions of the subclavian, axillary, brachial, radial, ulnar, cephalic, and basilic veins demonstrate normal compressibility, phasicity, and augmentation. However, the proximal portions of the brachial vein were poorly visualized secondary to soft tissue swelling at this location. IMPRESSION: No definite evidence of deep or superficial venous thrombosis within the right upper extremity within the limitations of the exam. copyright 2010 [employer] [facility]- All Rights Reserved
[2019-02-08] MEDS: RINGERS SOLUTION,LACTATED 1,000 ML IV PRN (21:41)
[2019-02-08] MEDS: HEPARIN SOD (PORCINE) 5,000 UNIT/ML 1 ML VIAL SUBCUT SCH (23:08)
[2019-02-08] MEDS: FAMOTIDINE 20 MG TABLET PO SCH (23:08)
[2019-02-08] MEDS: NALBUPHINE HCL INJ 10 MG/1 ML AMPULE IV PRN (23:15)
[2019-02-09] MEDS ORDERED: PIPERACILLIN SODIUM/TAZOBACTAM 3.375 GM in NORMAL SALINE 100 ML IV SCH ×2
[2019-02-09] MEDS ORDERED: PIPERACILLIN/TAZOBACTAM 3.375 GM VIAL IV SCH
[2019-02-09] MEDS: VANCOMYCIN HCL 1,000 MG in DEXTROSE 5%-WATER 250 ML IV SCH ×4 (00:16→21:56)
[2019-02-09] MEDS: NALBUPHINE HCL INJ 10 MG/1 ML AMPULE IV PRN (00:30)
[2019-02-09] MEDS ORDERED: NALBUPHINE HCL INJ 10 MG/1 ML AMPULE IV PRN ×2 (03:02→08:26)
--- NOTE | 2019-02-09 03:03 | PDOC H&P ---
History of Present Illness Admission Date/PCP: 02/08/2019 20:01 [facility] Patient complains of: Right arm pain History of Present Illness: KASEY HARRINGTON is a 38 year old male who presented to the emergency room with a 3-day history of right arm pain. Patient admits that 3 days ago he developed a painful lump in his right bicep muscle which has gradually increased in size and has been associated with local swelling, redness, warmth to touch and tenderness. The area has enlarged from his mid biceps area all the way to his axilla and has become exquisitely tender to touch and movement. He admits intravenous injection of Suboxone, obtained as a street drug, with his last use 3 days ago. He denies prior similar episodes and has not identified any additional aggravating or ameliorating factors for his right arm pain. In the emergency room he was found to have a mild leukocytosis of 11,900 and the remainder of his laboratory evaluation was unremarkable. A Doppler study of his right upper extremity showed no evidence of DVT. A ultrasound of the right upper extremity revealed no evidence of acute abscess. Patient was subsequently admitted to the hospital for further evaluation and treatment. Past Medical History Cardiac Medical History: Denies: Coronary Artery Disease, Hypertension Pulmonary Medical History: Reports: Asthma - Reactive airway disease with viral infections and seasonal allergies Denies: Chronic Obstructive Pulmonary Disease (COPD), Respiratory Failure EENT Medical History: Reports: Nose - Allergic rhinitis Denies: Cataracts Neurological Medical History: Denies: Multiple Sclerosis, Seizures Endocrine Medical History: Denies: Diabetes Mellitus Type 1, Hyperthyroidism, Hypothyroidism, Obesity Renal/ Medical History: Denies: Chronic Kidney Disease, Nephrolithiasis Malignancy Medical History: Reports: None GI Medical History: Denies: Cirrhosis, Crohn's Disease, Gastroesophageal Reflux Disease, Hepatitis, Peptic Ulcer Disease, Ulcerative Colitis Musculoskeltal Medical History: Denies: Arthritis, Gout Skin Medical History: Denies: Eczema, Psoriasis Psychiatric Medical History: Reports: Substance Abuse, Tobacco Dependency Denies: Alcohol Dependency Traumatic Medical History: Reports: None Hematology: Reports: Anemia Denies: Bleeding Tendencies Infectious Medical History: Reports: None Past Surgical History Past Surgical History: Reports: None Social History Information Source: Patient Lives with: Spouse/Significant other Smoking Status: Current Every Day Smoker Frequency of Alcohol Use: Rare Hx Recreational Drug Use: Yes Drugs: Other - Intravenous Suboxone Hx Prescription Drug Abuse: No - Advance Directive Resuscitation Status: Full Code Surrogate healthcare decision maker:: Jose Harrington Family History Family History: Hypertension Parental Family History Reviewed: Yes Children Family History Reviewed: No Sibling(s) Family History Reviewed.: Yes Medication/Allergy Home Medications: Cefuroxime Axetil [Ceftin 500 mg Tablet] 500 mg PO BID 5 Days #10 tablet 11/04/17 Doxycycline Hyclate [Vibramycin 100 mg Tablet] 100 mg PO Q12 5 Days #10 tablet 11/04/17 Gabapentin [Neurontin 100 mg Capsule] 100 mg PO DAILY #20 capsule 11/04/17 Sucralfate [Carafate 1 gm Tablet] 1 gm PO BID #10 tablet 08/28/18 Allergies/Adverse Reactions: No Known Allergies Allergy (Verified 08/28/18 11:21) Review of Systems Constitutional: ABSENT: chills, fever(s) Eyes: ABSENT: visual disturbances, other - Eye pain Ears: ABSENT: hearing changes, other - Ear pain Nose, Mouth, and Throat: ABSENT: mouth pain, sore throat Cardiovascular: ABSENT: chest pain, dyspnea on exertion, palpitations Respiratory: ABSENT: cough, dyspnea Gastrointestinal: ABSENT: abdominal pain, constipation, diarrhea, nausea, vomiting Genitourinary: ABSENT: dysuria, hematuria Musculoskeletal: PRESENT: as per HPI, other - Localized swelling, redness, warmth and pain in the right upper arm. ABSENT: back pain, joint swelling, muscle weakness Integumentary: PRESENT: as per HPI, erythema - Localized swelling, redness, warmth and pain in the right upper arm. ABSENT: pruritus, rash Neurological: ABSENT: confusion, convulsions, focal weakness, memory loss, syncope Psychiatric: ABSENT: anxiety, depression Endocrine: ABSENT: cold intolerance, heat intolerance Hematologic/Lymphatic: ABSENT: easy bleeding, easy bruising Allergic/Immunologic: PRESENT: seasonal rhinorrhea Physical Exam Vital Signs: Temp Pulse Resp BP Pulse Ox 99.1 F 106 H 16 118/67 96 02/08/19 17:26 02/08/19 17:26 02/08/19 17:26 02/08/19 17:26 02/08/19 17:26 Intake & Output 02/06/19 02/07/19 02/08/19 23:59 23:59 23:59 Weight 68.6 kg General appearance: PRESENT: no acute distress, cooperative Head exam: PRESENT: atraumatic, normocephalic Eye exam: PRESENT: conjunctiva pink. ABSENT: conjunctival injection, scleral icterus Ear exam: PRESENT: normal external ear exam. ABSENT: bleeding, drainage Mouth exam: PRESENT: dry mucosa, neck supple Neck exam: ABSENT: thyromegaly, tracheal deviation Respiratory exam: PRESENT: clear to auscultation lucho, symmetrical, unlabored Cardiovascular exam: PRESENT: RRR. ABSENT: clicks, gallop, rubs Pulses: PRESENT: normal radial pulses, normal dorsalis pedis pul Vascular exam: PRESENT: normal capillary refill. ABSENT: pallor GI/Abdominal exam: PRESENT: normal bowel sounds, soft Rectal exam: PRESENT: deferred Extremities exam: PRESENT: tenderness - Localized swelling, redness, warmth and pain to palpation in the right upper arm from the biceps into the axilla with palpable tender axillary lymph nodes. ABSENT: joint swelling, pedal edema Musculoskeletal exam: ABSENT: deformity, dislocation, full ROM - Range of motion of right upper extremity at the shoulder is decreased secondary to pain Neurological exam: PRESENT: alert, oriented to person, oriented to place, oriented to time, oriented to situation, CN II-XII grossly intact. ABSENT: motor sensory deficit Psychiatric exam: PRESENT: appropriate affect, normal mood Skin exam: PRESENT: dry, intact, warm. ABSENT: jaundice, rash, urticaria Results Laboratory Results: 02/08/19 18:48 02/08/19 18:48 02/08/19 02/08/19 18:48 18:48 WBC 11.6 H RBC 5.31 Hgb 14.4 Hct 42.2 MCV 79 L MCH 27.1 MCHC 34.2 RDW 13.7 Plt Count 261 Seg Neutrophils % 81.3 H Sodium 138.9 Potassium 4.2 Chloride 101 Carbon Dioxide 29 Anion Gap 9 BUN 14 Creatinine 0.67 Est GFR ( Amer) > 60 Glucose 117 H Calcium 9.6 Assessment and Plan - Diagnosis (1) Cellulitis of right upper arm Is this a current diagnosis for this admission?: Yes Plan: Patient will be admitted and treated with intravenous vancomycin and Zosyn. Daily CBCs metabolic profiles will be monitored. Surgical consultation will be obtained as appropriate based on results of treatment. (2) Pain of right upper arm Is this a current diagnosis for this admission?: Yes Plan: Patient's pain will be treated with Nubain 5 to 10 mg IV every 3 hours on an as needed basis using a sliding scale for pain. For lesser pain the patient will also have available tramadol 50 mg 2 p.o. every 6 hours as needed. (3) DVT prophylaxis Is this a current diagnosis for this admission?: Yes Plan: Patient be treated with 5000 units of heparin subcutaneously every 8 hours and will use SEA hose as a means of VTE prophylaxis. (4) Tobacco use disorder, severe, dependence Is this a current diagnosis for this admission?: Yes Plan: Smoking cessation is advised and counseled briefly at the bedside. A nicotine replacement patch is available for the patient's use. (5) IV drug abuse Is this a current diagnosis for this admission?: Yes Plan: Cessation of IV drug abuse and all other drug abuse is advised and counseled briefly at the bedside. - Time Time Spent with patient: 15-24 minutes Smoking Cessation Education: 3 to 10 minutes Medications reviewed and adjusted accordingly: Yes Anticipated discharge: Home - Inpatient Certification Based on my medical assessment, after consideration of the patient's comorbidities, presenting symptoms, or acuity I expect that the services needed warrant INPATIENT care.: Yes I certify that my determination is in accordance with my understanding of Medicare's requirements for reasonable and necessary INPATIENT services [42 CFR 412.3e].: Yes Medical Necessity: Need Close Monitoring Due to Risk of Patient Decompensation, Need for Pain Control, Need for IV Antibiotics, Risk of Complication if Not Cared For in Hospital, Risk of Diagnosis Which Will Require Inpatient Eval/Care/Monitoring
[2019-02-09] MEDS ORDERED: NALBUPHINE HCL INJ 20 MG/1 ML AMPULE IV PRN (03:19)
[2019-02-09] MEDS ORDERED: PIPERACILLIN SODIUM/TAZOBACTAM 3.375 GM in NORMAL SALINE 100 ML IV ONE (03:30)
[2019-02-09 04:40] LABS: URINE AMPHETAMINES SCREEN NEGATIVE; URINE BARBITURATES SCREEN NEGATIVE; URINE BENZODIAZEPINES SCREEN NEGATIVE; URINE COCAINE SCREEN NEGATIVE; URINE MARIJUANA (THC) SCREEN NEGATIVE; URINE METHADONE SCREEN NEGATIVE; URINE PHENCYCLIDINE SCREEN NEGATIVE
[2019-02-09 04:42] LABS: HEMATOCRIT 39.9 % (37.9-51.0); HEMOGLOBIN 13.5 g/dL (13.5-17.0); MEAN CORPUSCULAR HEMOGLOBIN 27.3 pg (27.0-33.4); MEAN CORPUSCULAR HGB CONC 33.9 g/dL (32.0-36.0); MEAN CORPUSCULAR VOLUME 81 fl (80-97); PLATELET COUNT 265 10^3/uL (150-450); RED BLOOD COUNT 4.96 10^6/uL (4.35-5.55); RED CELL DISTRIBUTION WIDTH 13.6 % (11.5-14.0)
[2019-02-09 05:11] LABS: ANION GAP 10 (5-19); BLOOD UREA NITROGEN 14 mg/dL (7-20); CALCIUM 9.3 mg/dL (8.4-10.2); CARBON DIOXIDE 26 mmol/L (22-30); CHLORIDE 103 mmol/L (98-107); GLUCOSE 102 mg/dL (75-110); POTASSIUM 4.1 mmol/L (3.6-5.0)
[2019-02-09] MEDS: HEPARIN SOD (PORCINE) 5,000 UNIT/ML 1 ML VIAL SUBCUT SCH ×3 (05:34→21:21)
[2019-02-09] MEDS ORDERED: BUPIVACAINE HCL 0.25% /EPINEPHRINE INJ/PF 30 ML SDV ONE (08:13)
[2019-02-09] MEDS ORDERED: MIDAZOLAM 2 MG/2 ML INJ ONE (08:16)
[2019-02-09] MEDS ORDERED: FENTANYL CITRATE INJ/PF 100 MCG/2 ML AMPUL ONE (08:16)
[2019-02-09] MEDS ORDERED: PROPOFOL INJ 200 MG/20 ML VIAL IV ONE (08:17)
[2019-02-09] MEDS ORDERED: DEXAMETHASONE SOD PHOSPHATE INJ 4 MG/1 ML VIAL ONE (08:17)
[2019-02-09] MEDS ORDERED: MORPHINE SULFATE 10 MG/ML INJ ONE (08:17)
[2019-02-09] MEDS ORDERED: ONDANSETRON HCL INJ/PF 4 MG/2 ML SDV ONE (08:17)
[2019-02-09] MEDS: PIPERACILLIN SODIUM/TAZOBACTAM 3.375 GM in NORMAL SALINE 100 ML IV SCH ×3 (09:00→20:13)
[2019-02-09] MEDS ORDERED: BUPIVACAINE HCL 0.25% /EPINEPHRINE INJ/PF 30 ML SDV INFIL ONE (09:32)
[2019-02-09] MEDS ORDERED: PROMETHAZINE HCL INJ 25 MG/1 ML VIAL IV PRN ×2 (09:38)
[2019-02-09] MEDS ORDERED: MORPHINE SULFATE 10 MG/ML INJ IV PRN (09:38)
[2019-02-09] MEDS ORDERED: DIPHENHYDRAMINE HCL 50 MG/ML VIAL IV PRN (09:38)
[2019-02-09] MEDS ORDERED: MEPERIDINE HCL/PF INJ 25 MG/1 ML DISP.SYRIN IV PRN (09:38)
[2019-02-09] MEDS ORDERED: FENTANYL CITRATE INJ/PF 100 MCG/2 ML AMPUL IV PRN ×3 (09:38)
--- NOTE | 2019-02-09 09:51 | Operative Report ---
Operative Report DATE OF SURGERY: 02/09/19 PREOPERATIVE DIAGNOSIS: right upper arm abscess POSTOPERATIVE DIAGNOSIS: right upper arm abscess OPERATION: incision drainage of right upper arm abscess SURGEON: LEAH FALLON ANESTHESIA: GA TISSUE REMOVED OR ALTERED: none COMPLICATIONS: none ESTIMATED BLOOD LOSS: 25cc INTRAOPERATIVE FINDINGS: see procedure note PROCEDURE: Patient was brought to the operating room awake alert stable condition placed in the operative table supine position placed under general anesthesia the right upper arm was prepped and draped in usual sterile fashion for the procedure. After an appropriate timeout and site verification a longitudinal incision was made from the antecubital fossa along the medial aspect of the right upper arm for approximately 10 cm dissection was carried out through subtenons tissue with Bovie cautery partial fascia was divided with Bovie cautery taking or not to injure the underlying cyst brachial vein since we got through the deep deep surgical fascia large amount of pus exuded from the wound it was sent for C&S and Gram stain digital dissection revealed a pocket and this was opened with the Bovie cautery upon opening the pocket we noted the knee and nerve brachial artery basilic vein all within the depths of the pocket the pocket had granulation tissue it there was no significant necrotic muscle and therefore we copiously irrigated with normal saline suctioned dry and packed it with a Betadine soaked sponge which completed the procedure estimated blood loss was 25 cc sponge needle counts were correct x2 the patient was transferred recovery in stable condition
[2019-02-09] MEDS ORDERED: MORPHINE SULFATE 10 MG/ML INJ IV SCH ×2 (10:00→15:00)
[2019-02-09] MEDS ORDERED: DIPHENHYDRAMINE HCL 50 MG/ML VIAL ONE (10:01)
[2019-02-09] MEDS ORDERED: PROMETHAZINE HCL INJ 25 MG/1 ML VIAL ONE (10:01)
[2019-02-09] MEDS: RINGERS SOLUTION,LACTATED 1,000 ML IV PRN (13:16)
[2019-02-09] MEDS: FAMOTIDINE 20 MG TABLET PO SCH ×2 (13:16→21:56)
[2019-02-09] MEDS: DOCUSATE SODIUM 100 MG CAPSULE PO SCH ×2 (13:16→18:20)
[2019-02-09] MEDS: MORPHINE SULFATE 10 MG/ML INJ IV SCH ×5 (13:22→23:26)
[2019-02-09] MEDS: NICOTINE 21 MG/24 HR PATCH.TD24 TD PRN (15:45)
--- NOTE | 2019-02-09 21:54 | PDOC PROGRESS REPORT ---
Subjective Progress Note for:: 02/09/19 Subjective:: The patient had surgery this morning. He is somewhat groggy. He still has discomfort. There is a large bulky dressing over his right upper arm. Reason For Visit: CELLULITIS OF RIGHT UPPER ARM AND AXILLA Physical Exam Vital Signs: Temp Pulse Resp BP Pulse Ox 98.3 F 86 16 121/68 93 02/09/19 20:05 02/09/19 20:05 02/09/19 20:05 02/09/19 20:05 02/09/19 20:05 Intake & Output 02/08/19 02/09/19 02/10/19 06:59 06:59 06:59 Intake Total 1670 1400 Output Total 500 410 Balance 1170 990 Weight 70.4 kg General appearance: PRESENT: cooperative, mild distress, thin, well-developed Head exam: PRESENT: atraumatic, normocephalic Respiratory exam: PRESENT: clear to auscultation lucho, symmetrical, unlabored. ABSENT: rales, rhonchi, tachypnea, wheezes Cardiovascular exam: PRESENT: RRR, +S1, +S2 GI/Abdominal exam: PRESENT: normal bowel sounds, soft, other - Midline scar. ABSENT: distended, guarding, tenderness Extremities exam: PRESENT: other - Bulky dressing right upper arm as noted above.. ABSENT: joint swelling, pedal edema, tenderness Musculoskeletal exam: PRESENT: normal inspection - Except right upper arm Neurological exam: PRESENT: alert, awake, oriented to person, oriented to place, oriented to time, oriented to situation, CN II-XII grossly intact Psychiatric exam: PRESENT: appropriate affect. ABSENT: agitated, anxious Focused psych exam: ABSENT: delusional, restlessness Results Laboratory Results: 02/09/19 03:40 02/09/19 03:40 02/09/19 02/09/19 03:40 03:40 WBC 13.0 H RBC 4.96 Hgb 13.5 Hct 39.9 MCV 81 MCH 27.3 MCHC 33.9 RDW 13.6 Plt Count 265 Sodium 139.0 Potassium 4.1 Chloride 103 Carbon Dioxide 26 Anion Gap 10 BUN 14 Creatinine 0.70 Est GFR ( Amer) > 60 Glucose 102 Calcium 9.3 Impressions: Venous Doppler Study 02/08/19 18:15 IMPRESSION: No definite evidence of deep or superficial venous thrombosis within the right upper extremity within the limitations of the exam. copyright 2010 [employer]- All Rights Reserved Extremity Ultrasound 02/08/19 19:51 IMPRESSION: Right upper arm/axillary heterogeneous 5 cm fluid collection may represent hematoma and/or abscess. Adjacent lymph node as well. Assessment and Plan - Diagnosis (1) Cellulitis of right upper arm Is this a current diagnosis for this admission?: Yes Plan: 02/09/2019-status post surgical debridement of abscess right upper arm. Continue vancomycin and Zosyn. (2) Pain of right upper arm Is this a current diagnosis for this admission?: Yes Plan: 02/09/2019-Nubain is available if needed (3) DVT prophylaxis Is this a current diagnosis for this admission?: Yes Plan: 02/09/2019-subcutaneous heparin 3 times a day (4) Tobacco use disorder, severe, dependence Is this a current diagnosis for this admission?: Yes Plan: 02/09/2019-encourage smoking cessation (5) IV drug abuse Is this a current diagnosis for this admission?: Yes Plan: 02/09/2019-encourage outpatient detox program. - Time Time Spent with patient: Less than 15 minutes Medications reviewed and adjusted accordingly: Yes Anticipated discharge: Home
[2019-02-10] MEDS: MORPHINE SULFATE 10 MG/ML INJ IV SCH ×9 (01:41→23:13)
[2019-02-10] MEDS: PIPERACILLIN SODIUM/TAZOBACTAM 3.375 GM in NORMAL SALINE 100 ML IV SCH ×3 (02:02→19:37)
[2019-02-10] MEDS: HEPARIN SOD (PORCINE) 5,000 UNIT/ML 1 ML VIAL SUBCUT SCH ×3 (06:15→22:03)
[2019-02-10] MEDS: VANCOMYCIN HCL 1,000 MG in DEXTROSE 5%-WATER 250 ML IV SCH ×3 (06:29→22:01)
[2019-02-10] MEDS: DOCUSATE SODIUM 100 MG CAPSULE PO SCH ×2 (09:46→18:11)
[2019-02-10] MEDS: FAMOTIDINE 20 MG TABLET PO SCH ×2 (09:46→22:03)
[2019-02-10] MEDS ORDERED: IBUPROFEN 200 MG PO PRN (14:16)
[2019-02-10] MEDS ORDERED: IBUPROFEN SUSP 20 MG/1 ML 118 ML PO PRN (16:00)
--- NOTE | 2019-02-10 17:03 | PDOC PROGRESS REPORT ---
Subjective Progress Note for:: 02/10/19 Subjective:: pains along right arm I&D site Reason For Visit: CELLULITIS OF RIGHT UPPER ARM AND AXILLA Physical Exam Vital Signs: Temp Pulse Resp BP Pulse Ox 97.9 F 64 17 130/73 H 98 02/10/19 11:29 02/10/19 11:29 02/10/19 11:29 02/10/19 11:29 02/10/19 11:29 Intake & Output 02/09/19 02/10/19 02/11/19 06:59 06:59 06:59 Intake Total 1670 2750 590 Output Total 500 411 600 Balance 1170 2339 -10 Weight 70.4 kg 70.4 kg Exam: Dressing is removed from the right arm and the site. The wound looks clean and dry. The piece of iodoform gauze was used to repack the wound. The arm itself appears to be still edematous with minimal inflammation. Results Laboratory Results: 02/09/19 03:40 02/09/19 03:40 Impressions: Venous Doppler Study 02/08/19 18:15 IMPRESSION: No definite evidence of deep or superficial venous thrombosis within the right upper extremity within the limitations of the exam. copyright 2011 [employer] All Rights Reserved Extremity Ultrasound 02/08/19 19:51 IMPRESSION: Right upper arm/axillary heterogeneous 5 cm fluid collection may represent hematoma and/or abscess. Adjacent lymph node as well. Assessment & Plan - Diagnosis (1) Abscess of right upper extremity Is this a current diagnosis for this admission?: Yes (2) IV drug abuse Is this a current diagnosis for this admission?: Yes (3) Tobacco use disorder, severe, dependence Is this a current diagnosis for this admission?: Yes - Time Time Spent with patient: 15-24 minutes - Plan Summary Plan Summary: Continue IV antibiotics. I will recheck the wound tomorrow if continues to improve could possibly be discharged in 24 hrs on p.o. antibiotics
[2019-02-10] MEDS: NICOTINE 21 MG/24 HR PATCH.TD24 TD PRN (17:06)
[2019-02-10 22:11] LABS: VANCOMYCIN,TROUGH 14.3 ug/mL (5.0-20.0)
[2019-02-11] MEDS: PIPERACILLIN SODIUM/TAZOBACTAM 3.375 GM in NORMAL SALINE 100 ML IV SCH ×4 (01:39→17:33)
[2019-02-11] MEDS: MORPHINE SULFATE 10 MG/ML INJ IV SCH ×6 (03:57→18:27)
[2019-02-11 05:09] LABS: HEMATOCRIT 37.8 % (37.9-51.0); HEMOGLOBIN 12.9 g/dL (13.5-17.0); MEAN CORPUSCULAR HEMOGLOBIN 27.2 pg (27.0-33.4); MEAN CORPUSCULAR HGB CONC 34.2 g/dL (32.0-36.0); MEAN CORPUSCULAR VOLUME 80 fl (80-97); PLATELET COUNT 296 10^3/uL (150-450); RED BLOOD COUNT 4.75 10^6/uL (4.35-5.55); RED CELL DISTRIBUTION WIDTH 13.5 % (11.5-14.0); WHITE BLOOD COUNT 7.4 10^3/uL (4.0-10.5)
[2019-02-11 05:31] LABS: ANION GAP 9 (5-19); BLOOD UREA NITROGEN 16 mg/dL (7-20); CARBON DIOXIDE 28 mmol/L (22-30); CHLORIDE 103 mmol/L (98-107); GLUCOSE 86 mg/dL (75-110); POTASSIUM 4.1 mmol/L (3.6-5.0)
[2019-02-11] MEDS: HEPARIN SOD (PORCINE) 5,000 UNIT/ML 1 ML VIAL SUBCUT SCH ×3 (06:28→22:24)
[2019-02-11] MEDS: VANCOMYCIN HCL 1,000 MG in DEXTROSE 5%-WATER 250 ML IV SCH ×3 (07:56→22:21)
[2019-02-11] MEDS: FAMOTIDINE 20 MG TABLET PO SCH ×2 (10:43→22:21)
[2019-02-11] MEDS: DOCUSATE SODIUM 100 MG CAPSULE PO SCH ×2 (10:43→17:38)
--- NOTE | 2019-02-11 15:06 | PDOC PROGRESS REPORT ---
Subjective Progress Note for:: 02/11/19 Subjective:: KASEY FREY is a 38 year old male who presented to the emergency room with a 3-day history of right arm pain. Patient admits that 3 days ago he developed a painful lump in his right bicep muscle which has gradually increased in size and has been associated with local swelling, redness, warmth to touch and tenderness. The area has enlarged from his mid biceps area all the way to his axilla and has become exquisitely tender to touch and movement. He admits i ntravenous injection of Suboxone, obtained as a street drug, with his last use 3 days ago. He denies prior similar episodes and has not identified any additional aggravating or ameliorating factors for his right arm pain. In the emergency room he was found to have a mild leukocytosis of 11,900 and the remainder of his laboratory evaluation was unremarkable. A Doppler study of his right upper extremity showed no evidence of DVT. A ultrasound of the right upper extremity revealed no evidence of acute abscess. Patient was subsequently admitted to the hospital for further evaluation and treatment. 02/10/2019. No acute events overnight, patient endorses improvement of right upper extremity pain, status post I&D by surgery on 02/09/2019. Denies any fever, chills, nausea, vomiting, diarrhea, constipation or any urinary symptoms. Reason For Visit: CELLULITIS OF RIGHT UPPER ARM AND AXILLA Physical Exam Vital Signs: Temp Pulse Resp BP Pulse Ox 97.5 F 67 12 121/76 97 02/11/19 11:45 02/11/19 11:45 02/11/19 11:45 02/11/19 11:45 02/11/19 11:45 Intake & Output 02/10/19 02/11/19 02/12/19 06:59 06:59 06:59 Intake Total 2750 2242 706 Output Total 411 800 Balance 2339 1442 706 Weight 70.4 kg 72 kg General appearance: PRESENT: no acute distress, well-developed, well-nourished Head exam: PRESENT: atraumatic, normocephalic Respiratory exam: PRESENT: clear to auscultation lucho. ABSENT: rales, rhonchi, wheezes Cardiovascular exam: PRESENT: RRR. ABSENT: diastolic murmur, rubs, systolic murmur Pulses: PRESENT: normal dorsalis pedis pul Extremities exam: PRESENT: full ROM, other - Right proximal upper extremity medial aspect abscess, s/p I&D. ABSENT: calf tenderness, clubbing, pedal edema Results Laboratory Results: 02/11/19 03:50 02/11/19 03:50 02/11/19 02/11/19 03:50 03:50 WBC 7.4 RBC 4.75 Hgb 12.9 L Hct 37.8 L MCV 80 MCH 27.2 MCHC 34.2 RDW 13.5 Plt Count 296 Sodium 140.4 Potassium 4.1 Chloride 103 Carbon Dioxide 28 Anion Gap 9 BUN 16 Creatinine 0.71 Est GFR ( Amer) > 60 Glucose 86 Calcium 9.0 Impressions: Venous Doppler Study 02/08/19 18:15 IMPRESSION: No definite evidence of deep or superficial venous thrombosis within the right upper extremity within the limitations of the exam. copyright 2010 [employer]- All Rights Reserved Extremity Ultrasound 02/08/19 19:51 IMPRESSION: Right upper arm/axillary heterogeneous 5 cm fluid collection may represent hematoma and/or abscess. Adjacent lymph node as well. Assessment and Plan - Diagnosis (1) Abscess of right upper extremity Is this a current diagnosis for this admission?: Yes Plan: Day 3 post I&D of proximal right upper extremity medial aspect abscess by surgery Dressing in place, wound looks clean, no drainage. Afebrile, vitals WNL, no leukocytosis. Cultures negative so far. Day 4 IV antibiotics. Day 4 IV vancomycin. Day 4 of Zosyn. Continue empiric IV antibiotics, follow surgery recommendation, patient could be sent home tomorrow with p.o. antibiotics if surgery signed off. (2) IV drug abuse Is this a current diagnosis for this admission?: Yes Plan: Monitor for withdrawal. Encouraged abstinence. (3) Tobacco use disorder, severe, dependence Is this a current diagnosis for this admission?: Yes Plan: Consult on cessation. Nicotine patch provided.
[2019-02-11] MEDS: OXYCODONE-ACETAMINOPHEN 5-325 MG TABLET PO PRN (15:59)
--- NOTE | 2019-02-11 19:19 | PDOC PROGRESS REPORT ---
Subjective Progress Note for:: 02/11/19 Subjective:: mild pains operative site Reason For Visit: CELLULITIS OF RIGHT UPPER ARM AND AXILLA Physical Exam Vital Signs: Temp Pulse Resp BP Pulse Ox 97.5 F 67 12 121/76 97 02/11/19 11:45 02/11/19 11:45 02/11/19 11:45 02/11/19 11:45 02/11/19 11:45 Intake & Output 02/10/19 02/11/19 02/12/19 06:59 06:59 06:59 Intake Total 2750 2242 1030 Output Total 411 800 Balance 2339 1442 1030 Weight 70.4 kg 72 kg Exam: Dressings removed. Wound looks clean and dry. Surrounding inflammation is subsiding Repacked loosely with iodoform gauze C/S so far no growth Results Laboratory Results: 02/11/19 03:50 02/11/19 03:50 02/11/19 02/11/19 03:50 03:50 WBC 7.4 RBC 4.75 Hgb 12.9 L Hct 37.8 L MCV 80 MCH 27.2 MCHC 34.2 RDW 13.5 Plt Count 296 Sodium 140.4 Potassium 4.1 Chloride 103 Carbon Dioxide 28 Anion Gap 9 BUN 16 Creatinine 0.71 Est GFR ( Amer) > 60 Glucose 86 Calcium 9.0 Impressions: Venous Doppler Study 02/08/19 18:15 IMPRESSION: No definite evidence of deep or superficial venous thrombosis within the right upper extremity within the limitations of the exam. copyright 2011 [employer]- All Rights Reserved Extremity Ultrasound 02/08/19 19:51 IMPRESSION: Right upper arm/axillary heterogeneous 5 cm fluid collection may represent hematoma and/or abscess. Adjacent lymph node as well. Assessment & Plan - Diagnosis (1) Abscess of right upper extremity Is this a current diagnosis for this admission?: Yes (2) IV drug abuse Is this a current diagnosis for this admission?: Yes (3) Tobacco use disorder, severe, dependence Is this a current diagnosis for this admission?: Yes - Time Time Spent with patient: 15-24 minutes - Inpatient Certification Medical Necessity: Need for IV Antibiotics - Plan Summary Plan Summary: Should be ready to be discharge tomorrow. Continue dressing changes on discharge with wet todry dressings daily. May shower then wash wound with soap and water in the morning then place wet to dry dressings. Continue with po antibiotics next 19 days. We can follow him in the surgical clinic in 2 weeks. Will sign off. Call for questions
[2019-02-11] MEDS: NICOTINE 21 MG/24 HR PATCH.TD24 TD PRN (20:16)
[2019-02-12] MEDS: MORPHINE SULFATE 10 MG/ML INJ IV SCH ×3 (00:39→12:17)
[2019-02-12] MEDS: PIPERACILLIN SODIUM/TAZOBACTAM 3.375 GM in NORMAL SALINE 100 ML IV SCH ×3 (01:05→12:20)
[2019-02-12] MEDS: HEPARIN SOD (PORCINE) 5,000 UNIT/ML 1 ML VIAL SUBCUT SCH ×2 (05:28→15:33)
[2019-02-12] MEDS: VANCOMYCIN HCL 1,000 MG in DEXTROSE 5%-WATER 250 ML IV SCH ×2 (07:55→15:35)
[2019-02-12] MEDS: FAMOTIDINE 20 MG TABLET PO SCH (09:04)
[2019-02-12] MEDS: OXYCODONE-ACETAMINOPHEN 5-325 MG TABLET PO PRN ×2 (09:04→15:32)
[2019-02-12] MEDS: DOCUSATE SODIUM 100 MG CAPSULE PO SCH (10:00)
[2019-02-12] MEDS ORDERED: ONDANSETRON HCL INJ/PF 4 MG/2 ML SDV IV PRN (14:30)
[2019-02-12 15:49] VITALS: BP 132/81
--- NOTE | 2019-02-13 17:07 | PDOC DISCHARGE SUMMARY ---
General - Admit/Disc Date/PCP Admission Date/Primary Care Provider: 02/08/19 21:04 Discharge Date: 02/12/19 - Discharge Diagnosis (1) Abscess of right upper extremity Is this a current diagnosis for this admission?: Yes (2) IV drug abuse Is this a current diagnosis for this admission?: Yes (3) Tobacco use disorder, severe, dependence Is this a current diagnosis for this admission?: Yes - Additional Information Resuscitation Status: Full Code Discharge Diet: As Tolerated Discharge Activity: Activity As Tolerated, No tub bath Prescriptions: Amoxicillin/Potassium Clav [Augmentin 500-125 Tablet] 1 each PO BID 10 Days #20 tablet Home Medications: Ibuprofen 200 mg PO Q6HP PRN 02/09/19 Amoxicillin/Potassium Clav [Augmentin 500-125 Tablet] 1 each PO BID 10 Days #20 tablet 02/12/19 History of Present Illness History of Present Illness: KASEY RFEY is a 38 year old male who presented to the emergency room with a 3-day history of right arm pain. Patient admits that 3 days ago he developed a painful lump in his right bicep muscle which has gradually increased in size and has been associated with local swelling, redness, warmth to touch and tenderness. The area has enlarged from his mid biceps area all the way to his axilla and has become exquisitely tender to touch and movement. He admits intravenous injection of Suboxone, obtained as a street drug, with his last use 3 days ago. He denies prior similar episodes and has not identified any additional aggravating or ameliorating factors for his right arm pain. In the emergency room he was found to have a mild leukocytosis of 11,900 and the remainder of his laboratory evaluation was unremarkable. A Doppler study of his right upper extremity showed no evidence of DVT. A ultrasound of the right upper extremity revealed no evidence of acute abscess. Patient was subsequently admitted to the hospital for further evaluation and treatment. Hospital Course Hospital Course: (1) Abscess of right upper extremity Patient was started on empiric IV antibiotics and surgery was consulted. He received I&D of proximal right upper extremity medial aspect abscess by surgery Wound culture grew Streptococcus Anginosus Group. Blood culture remained negative. Received wound care and patient. No infection or drainage noted time of discharge. Afebrile, vitals WNL, no leukocytosis. Received full dose of IV antibiotics. Received 4 days of IV vancomycin. Received 4 days of IV Zosyn. Discharged on Augmentin 500 mg p.o. twice daily for another 10 days. Follow-up appointment was arranged with Dr. Gupta at the surgery clinic. Wound care appointment was arranged for 02/23/2019. Unfortunately no appointment available before that date. Dr. Gupta contacted by discharge planning and as per their note he had stated it would be appropriate for him to follow-up with the wound clinic on 02/23/2019. (2) IV drug abuse No sign of withdrawal during hospitalization. Encouraged abstinence. (3) Tobacco use disorder, severe, dependence Consulted on cessation. Nicotine patch provided. Physical Exam Vital Signs: Temp Pulse Resp BP Pulse Ox 98.4 F 80 12 132/81 H 97 02/12/19 15:42 02/12/19 15:42 02/12/19 15:42 02/12/19 15:42 02/12/19 15:42 Intake & Output 02/12/19 02/13/19 02/14/19 06:59 06:59 06:59 Intake Total 2360 606 Balance 2360 606 Weight 72 kg General appearance: PRESENT: no acute distress, well-developed, well-nourished Head exam: PRESENT: atraumatic, normocephalic Eye exam: PRESENT: conjunctiva pink, EOMI, PERRLA. ABSENT: scleral icterus Ear exam: PRESENT: normal external ear exam Mouth exam: PRESENT: moist, tongue midline Neck exam: ABSENT: carotid bruit, JVD, lymphadenopathy, thyromegaly Respiratory exam: PRESENT: clear to auscultation lucho. ABSENT: rales, rhonchi, wheezes Cardiovascular exam: PRESENT: RRR. ABSENT: diastolic murmur, rubs, systolic murmur Pulses: PRESENT: normal dorsalis pedis pul Vascular exam: PRESENT: normal capillary refill GI/Abdominal exam: PRESENT: normal bowel sounds, soft. ABSENT: distended, guarding, mass, organolmegaly, rebound, tenderness Rectal exam: PRESENT: deferred Extremities exam: PRESENT: full ROM, other - Right upper extremity medial aspect above the elbow wound looks clean, no sign of infection discharge. Neurovascularly intact.. ABSENT: calf tenderness, clubbing, pedal edema Neurological exam: PRESENT: alert, awake, oriented to person, oriented to place, oriented to time, oriented to situation, CN II-XII grossly intact. ABSENT: motor sensory deficit Psychiatric exam: PRESENT: appropriate affect, normal mood. ABSENT: homicidal ideation, suicidal ideation Skin exam: PRESENT: dry, intact, warm. ABSENT: cyanosis, rash Results Laboratory Results: 02/11/19 03:50 02/11/19 03:50 02/09/19 09:32 Arm - Right Cellulitis Gram Stain - Final 02/09/19 09:32 Arm - Right Cellulitis Wound Culture - Final Strep Anginosus Group No Anaerobic Organisms Impressions: Venous Doppler Study 02/08/19 18:15 IMPRESSION: No definite evidence of deep or superficial venous thrombosis within the right upper extremity within the limitations of the exam. copyright 2011 [employer]- All Rights Reserved Extremity Ultrasound 02/08/19 19:51 IMPRESSION: Right upper arm/axillary heterogeneous 5 cm fluid collection may represent hematoma and/or abscess. Adjacent lymph node as well. Qualifiers PATIENT BEING DISCHARGED WITH ANY OF THE FOLLOWING DIAGNOSIS: No VTE patient discharged on overlapping Therapy?: Yes Acute Heart Failure - Is this a Heart Failure Patient?: No
== END 2019-02-12 17:35 | disposition home or self-care (01) | DRG 581 ==
LOC: ER 17:21 → EH 21:04 → 5 22:55
PROVIDERS: ADMIT Emergency Medicine; ATTEND Emergency Medicine
PROC: 0J9D0ZZ Drainage of Right Upper Arm Subcutaneous Tissue and Fascia, Open Approach (ICD-10-PCS; principal; 2019-02-09 08:30)
DX: L03.113 Cellulitis of right upper limb (principal); F11.10 Opioid abuse, uncomplicated; Z71.51 Drug abuse counseling and surveillance of drug abuser; Z86.14 Personal history of Methicillin resistant Staphylococcus aureus infection; F17.200 Nicotine dependence, unspecified, uncomplicated; J45.909 Unspecified asthma, uncomplicated; D72.829 Elevated white blood cell count, unspecified; B95.4 Other streptococcus as the cause of diseases classified elsewhere; Z82.49 Family history of ischemic heart disease and other diseases of the circulatory system; Z71.6 Tobacco abuse counseling
CPT/HCPCS: 1810; 36415; 76882; 80048; 80202; 80307; 85025; 85027; 85610; 85730; 87040; 87070; 87075; 87077; 87205; 93971; 94640; 99285; J0330; J1100; J1200; J1644; J2250; J2270; J2300; J2405; J2543; J2550; J2704; J3010; J3370; J3490; J7050; J7060; J7120; J7614

== ENCOUNTER 2019-06-16 22:30 | Emergency (ER) | payer OTHER ==
[2019-06-16 22:36] VITALS: BP 129/70
--- NOTE | 2019-06-16 23:15 | ER Document Report ---
HPI - HPI Patient complains to provider of: dental pain Time Seen by Provider: 06/16/19 23:09 Onset: Last week Onset/Duration: Sudden Quality of pain: Achy Context: 38-year-old male presents emergency department with complaints of dental pain to the left upper back tooth. Reports it started last week but he took some leftover amoxicillin he had no went away. Reports it started back today. He reports feels a little bit better because he used Orajel. He denies fever vomiting diarrhea. Associated Symptoms: None Exacerbated by: Denies Relieved by: Denies Similar symptoms previously: Yes Recently seen / treated by doctor: No Past Medical History - General Information source: Patient - Social History Smoking Status: Unknown if Ever Smoked Family History: Hypertension Patient has suicidal ideation: No Patient has homicidal ideation: No - Past Medical History Cardiac Medical History: Denies: Hx Coronary Artery Disease, Hx Hypertension Pulmonary Medical History: Reports: Hx Asthma - Reactive airway disease with v iral infections and seasonal allergies Denies: Hx COPD, Hx Respiratory Failure Neurological Medical History: Denies: Hx Seizures Endocrine Medical History: Denies: Hx Diabetes Mellitus Type 1, Hx Hyperthyroidism, Hx Hypothyroidism Renal/ Medical History: Denies: Hx Peritoneal Dialysis GI Medical History: Denies: Hx Cirrhosis, Hx Crohn's Disease, Hx Gastroesophageal Reflux Disease, Hx Hepatitis, Hx Ulcerative Colitis Musculoskeletal Medical History: Denies Hx Arthritis, Denies Hx Gout, Reports Hx Musculoskeletal Trauma Skin Medical History: Reports Hx Cellulitis, Denies Hx Eczema, Comment Only Hx MRSA - MRSA 02/13/2007 ABDOMEN, Denies Hx Psoriasis Psychiatric Medical History: Denies: Hx Depression Traumatic Medical History: Reports: Hx Fractures - Right hand Infectious Medical History: Denies: Hx Hepatitis Past Surgical History: Reports: Hx Abdominal Surgery - Perforated duodenal ulcer 09/30/2006., Hx Bowel Surgery - perforated bowel Vertical Provider Document - CONSTITUTIONAL Agree With Documented VS: Yes Exam Limitations: No Limitations General Appearance: WD/WN, No Apparent Distress - INFECTION CONTROL TRAVEL OUTSIDE OF THE [place] IN LAST 30 DAYS: No - HEENT HEENT: Atraumatic, Normocephalic Mouth Diagram: 1 - Patient reports area of pain. Opens mouth wide clear voice good airway no trismus no Reno's no erythema no obvious dental cavity no swelling no pustule - NECK Neck: Supple - RESPIRATORY Respiratory: No Respiratory Distress - CARDIOVASCULAR Cardiovascular: Regular Rate - MUSCULOSKELETAL/EXTREMETIES Musculoskeletal/Extremeties: COLLIN, FROM - NEURO Level of Consciousness: Awake, Alert, Appropriate Motor/Sensory: No Motor Deficit - DERM Integumentary: Warm, Dry Course - Re-evaluation Re-evalutation: 06/16/19 23:18 38-year-old presents with complaints of dental pain. He opens mouth wide clear voice no trouble speaking. No obvious infection noted. He was instructed on penicillin. He was also given information for the [facility]. He was instructed to follow-up Tuesday for treatment. He verbalized understanding to all instructions. - Vital Signs Vital signs: Temp Pulse Resp BP Pulse Ox 97.5 F 70 20 129/70 H 100 06/16/19 22:35 06/16/19 22:35 06/16/19 22:35 06/16/19 22:35 06/16/19 22:35 Discharge - Discharge Clinical Impression: Pain, dental Condition: Stable Disposition: HOME, SELF-CARE Instructions: Dentist, Penicillin V K ([facility]), Toothache ([facility]) Additional Instructions: *You have been evaluated for dental pain *Take medication as prescribed *Follow up with dentist within one week *Take Tylenol or ibuprofen as indicated for pain. *Return to ED for worsening condition, changes, needs Prescriptions: Penicillin V Potassium [Penicillin Vk 500 mg Tablet] 500 mg PO BID #20 tablet
== END 2019-06-16 23:18 | disposition home or self-care (01) ==
LOC: ER 22:30
DX: K08.9 Disorder of teeth and supporting structures, unspecified (principal)
CPT/HCPCS: 99282

== ENCOUNTER 2020-04-13 17:24 | Emergency (ER) | payer SELFPAY ==
--- NOTE | 2020-04-13 18:39 | ER Document Report ---
ED Medical Screen (RME) - General Chief Complaint: Hand Pain Stated Complaint: HAND SWELLING Time Seen by Provider: 04/13/20 18:33 Notes: HPI: 39-year-old male presenting for right hand pain and swelling for 2 weeks no trauma. No injectable drugs. States that he has had multiple fractures in the hand before does have plates in the hand. PHYSICAL EXAMINATION: Very slight soft tissue swelling without definitive overlying erythema or bruising to the dorsal right hand. Mild tenderness on palpation over the third fourth fifth metacarpals I have greeted and performed a rapid initial assessment of this patient. A comprehensive ED assessment and evaluation of the patient, analysis of test results and completion of medical decision making process will be conducted by an additional ED providers. TRAVEL OUTSIDE OF THE [place] IN LAST 30 DAYS: No - Related Data Allergies/Adverse Reactions: No Known Allergies Allergy (Verified 04/13/20 18:32) Home Medications: suboxone Past Medical History - Social History Chew tobacco use (# tins/day): No Frequency of alcohol use: None Drug Abuse: None - Past Medical History Cardiac Medical History: Denies: Hx Coronary Artery Disease, Hx Hypertension Pulmonary Medical History: Reports: Hx Asthma - Reactive airway disease with viral infections and seasonal allergies Denies: Hx COPD, Hx Respiratory Failure Neurological Medical History: Denies: Hx Seizures Endocrine Medical History: Denies: Hx Diabetes Mellitus Type 1, Hx Hyperthyroidism, Hx Hypothyroidism Renal/ Medical History: Denies: Hx Peritoneal Dialysis GI Medical History: Denies: Hx Cirrhosis, Hx Crohn's Disease, Hx Gastroesophageal Reflux Disease, Hx Hepatitis, Hx Ulcerative Colitis Musculoskeltal Medical History: Denies Hx Arthritis, Denies Hx Gout, Reports Hx Musculoskeletal Trauma Skin Medical History: Reports Hx Cellulitis, Denies Hx Eczema, Comment Only Hx MRSA - MRSA 02/13/2007 ABDOMEN, Denies Hx Psoriasis Psychiatric Medical History: Denies: Hx Depression Traumatic Medical History: Reports: Hx Fractures - Right hand Infectious Medical History: Denies: Hx Hepatitis Past Surgical History: Reports: Hx Abdominal Surgery - Perforated duodenal ulcer 09/30/2006., Hx Bowel Surgery - perforated bowel Physical Exam - Vital signs Vitals: Temp Pulse Resp BP Pulse Ox 98.4 F 83 20 136/89 H 99 04/13/20 17:30 04/13/20 17:30 04/13/20 17:30 04/13/20 17:30 04/13/20 17:30 Course - Vital Signs Vital signs: Temp Pulse Resp BP Pulse Ox 98.4 F 83 20 136/89 H 99 04/13/20 17:30 04/13/20 17:30 04/13/20 17:30 04/13/20 17:30 04/13/20 17:30
--- NOTE | 2020-04-13 19:06 | RADIOLOGY REPORT (SQ) ---
EXAM DESCRIPTION: HAND RIGHT 3 VIEWS IMAGES COMPLETED DATE/TIME: 04/13/2020 6:49 pm REASON FOR STUDY: swelling COMPARISON: 10/30/2017. EXAM PARAMETERS: NUMBER OF VIEWS: Three views. TECHNIQUE: AP, lateral and oblique radiographic images acquired of the right hand. LIMITATIONS: None. FINDINGS: MINERALIZATION: Normal. BONES: Old fractures of the 2nd and 3rd metacarpal with hardware. Again seen is broken hardware in 2nd metacarpal. No acute fracture or dislocation. No worrisome bone lesions. JOINTS: No effusions. SOFT TISSUES: No soft tissue swelling. No foreign body. OTHER: No other significant finding. IMPRESSION: STABLE CHRONIC CHANGES. NO ACUTE FINDINGS. TECHNICAL DOCUMENTATION: JOB ID: [id number] 2010 [email or web address]- All Rights Reserved Reading location - IP/workstation name: [email or web address]
[2020-04-13 20:38] LABS: ABSOLUTE EOSINOPHILS # (AUTO) 0.4 10^3/uL (0.0-0.6); ABSOLUTE LYMPHOCYTES (AUTO) 2.4 10^3/uL (0.5-4.7); ABSOLUTE MONOCYTES (AUTO) 0.4 10^3/uL (0.1-1.4); ABSOLUTE NEUT (AUTO) 5.1 10^3/uL (1.7-8.2); BASOPHILS % (AUTO) 0.6 % (0-2); EOSINOPHILS % (AUTO) 4.6 % (0-6); HEMATOCRIT 44.5 % (37.9-51.0); HEMOGLOBIN 15.3 g/dL (13.5-17.0); LYMPHOCYTES % (AUTO) 28.8 % (13-45); MEAN CORPUSCULAR HEMOGLOBIN 27.3 pg (27.0-33.4); MEAN CORPUSCULAR HGB CONC 34.4 g/dL (32.0-36.0); MEAN CORPUSCULAR VOLUME 79 fl (80-97); MONOCYTES % (AUTO) 4.4 % (3-13); RED CELL DISTRIBUTION WIDTH 15.3 % (11.5-14.0); SEGMENTED NEUTROPHILS % (AUTO) 61.6 % (42-78); TOTAL CELLS COUNTED % (AUTO) 100 %; WHITE BLOOD COUNT 8.3 10^3/uL (4.0-10.5)
[2020-04-13 21:00] LABS: ALBUMIN 4.4 g/dL (3.5-5.0); ALKALINE PHOSPHATASE 40 U/L (38-126); ANION GAP 9 (5-19); ASPARTATE AMINO TRANSFERASE 60 U/L (17-59); BILIRUBIN,DIRECT 0.2 mg/dL (0.0-0.4); BILIRUBIN,TOTAL 0.6 mg/dL (0.2-1.3); BLOOD UREA NITROGEN 20 mg/dL (7-20); CALCIUM 9.5 mg/dL (8.4-10.2); CARBON DIOXIDE 26 mmol/L (22-30); CHLORIDE 102 mmol/L (98-107); GLUCOSE 72 mg/dL (75-110); POTASSIUM 4.3 mmol/L (3.6-5.0); TOTAL PROTEIN 7.6 g/dL (6.3-8.2)
[2020-04-13 21:11] LABS: C-REACTIVE PROTEIN < 5.0 mg/L (<10.0)
[2020-04-13 21:15] LABS: PLATELET COUNT 174 10^3/uL (150-450)
[2020-04-13 21:29] LABS: ERYTHROCYTE SEDIMENTATION RATE 4 mm/hr (0-15)
[2020-04-13] MEDS ORDERED: CEPHALEXIN 500 MG CAPSULE PO ONE (23:34)
[2020-04-13] MEDS ORDERED: HYDROCODONE/ACETAMINOPHEN 5-325 MG (6 TAB/ER DISP) PO PRN (23:34)
[2020-04-13] MEDS ORDERED: SULFAMETHOXAZOLE/TRIMETHOPRIM 800-160 MG TABLET PO ONE (23:34)
--- NOTE | 2020-04-13 23:42 | ER Document Report ---
ED General - General Chief Complaint: Hand Pain Stated Complaint: HAND SWELLING Time Seen by Provider: 04/13/20 18:33 Mode of Arrival: Ambulatory Information source: Patient Notes: 39-year-old male coming in today for right hand pain and right forearm pain. He is an admitted IV drug abuser. States he has not shot up in this area in quite some time. Does not have any fevers or chills. No chest pain. No history of recent injury. TRAVEL OUTSIDE OF THE [place] IN LAST 30 DAYS: No - Related Data Allergies/Adverse Reactions: No Known Allergies Allergy (Verified 04/13/20 18:32) Home Medications: suboxone Past Medical History - Social History Smoking Status: Current Every Day Smoker Chew tobacco use (# tins/day): No Frequency of alcohol use: None Drug Abuse: None Family History: Hypertension - Past Medical History Cardiac Medical History: Denies: Hx Coronary Artery Disease, Hx Hypertension Pulmonary Medical History: Reports: Hx Asthma - Reactive airway disease with viral infections and seasonal allergies Denies: Hx COPD, Hx Respiratory Failure Neurological Medical History: Denies: Hx Seizures Endocrine Medical History: Denies: Hx Diabetes Mellitus Type 1, Hx Hyperthyroidism, Hx Hypothyroidism Renal/ Medical History: Denies: Hx Peritoneal Dialysis GI Medical History: Denies: Hx Cirrhosis, Hx Crohn's Disease, Hx Gastroesophageal Reflux Disease, Hx Hepatitis, Hx Ulcerative Colitis Musculoskeletal Medical History: Denies Hx Arthritis, Denies Hx Gout, Reports Hx Musculoskeletal Trauma Skin Medical History: Reports Hx Cellulitis, Denies Hx Eczema, Comment Only Hx MRSA - MRSA 02/13/2007 ABDOMEN, Denies Hx Psoriasis Psychiatric Medical History: Denies: Hx Depression Traumatic Medical History: Reports: Hx Fractures - Right hand Infectious Medical History: Denies: Hx Hepatitis Past Surgical History: Reports: Hx Abdominal Surgery - Perforated duodenal ulcer 09/30/2006., Hx Bowel Surgery - perforated bowel Review of Systems - Review of Systems Notes: Constitutional: No fevers. No chills. EENT: No eye redness. No eye pain. No ear pain. No sore throat. Cardiovascular: No chest pain. No palpitations. Respiratory: No cough. No shortness of breath. No respiratory distress. Gastrointestinal: No abdominal pain. No nausea, vomiting, or diarrhea. Genitourinary: Atraumatic. No lesions. No pain. No discharge. Musculoskeletal: Pain right hand right forearm Skin: Cellulitis right hand and right forearm Lymphatic: No swollen lymph nodes. Neurologic: No headache. No syncope. Psychiatric: No suicidal or homicidal ideation. Physical Exam - Vital signs Vitals: Temp Pulse Resp BP Pulse Ox 98.4 F 83 20 136/89 H 99 04/13/20 17:30 04/13/20 17:30 04/13/20 17:30 04/13/20 17:30 04/13/20 17:30 - Notes Notes: General: Well-developed, well-nourished. In no acute distress. Non-toxic appearing. Cardiac: Well-perfused. Regular rate and rhythm. No murmurs, rubs, or gallops. Pulmonary: No respiratory distress. No cyanosis. Bilateral lung salazar are clear to auscultation. Abdominal: Non-distended. Non-rigid. Bowels sounds are present in all four quadrants. No guarding or rebound. HEENT: Head is atraumatic. Conjunctivae not reddened. No tearing. PERRL. EOMI. Orbits atraumatic. No periorbital swelling or erythema. Oropharynx is without erythema, swelling, or exudates. Neck: Supple. No adenopathy. No meningismus. Dermatologic: Warm with good turgor. No rash. Atraumatic. Chest: Atraumatic. No chest wall tenderness to palpation. Musculoskeletal: Mild erythema and soft tissue swelling dorsal aspect right hand. Questionable mild lymphangitis into the dorsal right forearm. Normal range of motion of hand/digits/forearm. No subcutaneous crepitus. No abscess is appreciated. No purulent drainage. Questionable healing puncture sites to the dorsum of the right hand Genitourinary: Examination deferred Neurologic: No gross neurologic deficits. Psychiatric: Normal mood. Course - Re-evaluation Re-evalutation: 04/13/20 23:38 X-ray of the hand and lab work is all reassuring. No abscesses to drain. Suspect cellulitis from IV drug use. Will start on Keflex and Bactrim. First dose here. - Vital Signs Vital signs: Temp Pulse Resp BP Pulse Ox 98.4 F 83 20 136/89 H 99 04/13/20 17:30 04/13/20 17:30 04/13/20 17:30 04/13/20 17:30 04/13/20 17:30 - Laboratory Result Diagrams: 04/13/20 20:07 04/13/20 20:07 Laboratory results interpreted by me: 04/13/20 04/13/20 20:07 20:07 RBC 5.60 H MCV 79 L RDW 15.3 H Glucose 72 L AST 60 H ALT 74 H - Diagnostic Test Radiology reviewed: Reports reviewed Discharge - Discharge Clinical Impression: History of intravenous drug abuse Cellulitis Qualifiers: Site of cellulitis: extremity Site of cellulitis of extremity: upper extremity Laterality: right Qualified Code(s): L03.113 - Cellulitis of right upper limb Condition: Good Disposition: HOME, SELF-CARE Instructions: Cellulitis ([facility]) Prescriptions: Sulfamethoxazole/Trimethoprim [Bactrim Ds Tablet] 1 each PO BID 10 Days #20 tablet Cephalexin Monohydrate [Keflex 500 mg Capsule] 500 mg PO Q6H 10 Days #40 capsule Referrals: LEAH GILLIAM MD [[facility]] - Follow up in 3-5 days
[2020-04-14 00:16] VITALS: BP 133/86
== END 2020-04-14 00:15 | disposition home or self-care (01) ==
LOC: ER 17:24
DX: L03.113 Cellulitis of right upper limb (principal); M79.631 Pain in right forearm; M79.641 Pain in right hand; F17.200 Nicotine dependence, unspecified, uncomplicated; J45.909 Unspecified asthma, uncomplicated; F19.11 Other psychoactive substance abuse, in remission; Z79.899 Other long term (current) drug therapy
CPT/HCPCS: 36415; 80053; 85025; 85652; 86140; 99284

== ENCOUNTER 2020-04-29 18:07 | Emergency (ER) | payer SELFPAY ==
--- NOTE | 2020-04-29 19:13 | ER Document Report ---
ED Medical Screen (RME) - General Chief Complaint: Hand Swelling Stated Complaint: HAND SWELLING Time Seen by Provider: 04/29/20 19:07 Notes: HPI: History is obtained from the patient and the records. A 39-year-old male with right hand pain and subjective swelling over the last month. Patient was seen 2 weeks ago for concerns of a possible MRSA infection was placed on Bactrim and Keflex reports no absolute change in the swelling in the hand or the discomfort the discomfort is worse after he lays down to go to sleep at night. States he had surgery on the hand 20 years ago. He never followed up with anyone in the last 2 to 3 weeks since his visit here. Patient also relates that he does not follow with orthopedics for his hand issues. He has not had a fever. PHYSICAL EXAMINATION: There is very slight soft tissue swelling of the dorsum of the hand that appears unchanged from previous visit. Patient is afebrile. Full range of motion of the fingers and thumb on the right hand. Minimal discomfort on palpation of the dorsum of the hand. I have greeted and performed a rapid initial assessment of this patient. A comprehensive ED assessment and evaluation of the patient, analysis of test results and completion of medical decision making process will be conducted by an additional ED providers. TRAVEL OUTSIDE OF THE [place] IN LAST 30 DAYS: No - Related Data Allergies/Adverse Reactions: No Known Allergies Allergy (Verified 04/29/20 18:57) Past Medical History - Social History Chew tobacco use (# tins/day): No Frequency of alcohol use: None Drug Abuse: None - Past Medical History Cardiac Medical History: Denies: Hx Coronary Artery Disease, Hx Hypertension Pulmonary Medical History: Reports: Hx Asthma - Reactive airway disease with viral infections and seasonal allergies Denies: Hx COPD, Hx Respiratory Failure Neurological Medical History: Denies: Hx Seizures Endocrine Medical History: Denies: Hx Diabetes Mellitus Type 1, Hx Hyperthyroidism, Hx Hypothyroidism Renal/ Medical History: Denies: Hx Peritoneal Dialysis GI Medical History: Denies: Hx Cirrhosis, Hx Crohn's Disease, Hx Gastroesophageal Reflux Disease, Hx Hepatitis, Hx Ulcerative Colitis Musculoskeltal Medical History: Denies Hx Arthritis, Denies Hx Gout, Reports Hx Musculoskeletal Trauma Skin Medical History: Reports Hx Cellulitis, Denies Hx Eczema, Comment Only Hx MRSA - MRSA 02/13/2007 ABDOMEN, Denies Hx Psoriasis Psychiatric Medical History: Denies: Hx Depression Traumatic Medical History: Reports: Hx Fractures - Right hand Infectious Medical History: Denies: Hx Hepatitis Past Surgical History: Reports: Hx Abdominal Surgery - Perforated duodenal ulcer 09/30/2006., Hx Bowel Surgery - perforated bowel Physical Exam - Vital signs Vitals: Temp Pulse Resp BP Pulse Ox 98.2 F 73 20 119/70 97 04/29/20 18:20 04/29/20 18:20 04/29/20 18:20 04/29/20 18:20 04/29/20 18:20 Course - Vital Signs Vital signs: Temp Pulse Resp BP Pulse Ox 98.2 F 73 20 119/70 97 04/29/20 18:20 04/29/20 18:20 04/29/20 18:20 04/29/20 18:20 04/29/20 18:20
[2020-04-29 20:02] LABS: ABSOLUTE EOSINOPHILS # (AUTO) 0.5 10^3/uL (0.0-0.6); ABSOLUTE LYMPHOCYTES (AUTO) 1.9 10^3/uL (0.5-4.7); ABSOLUTE MONOCYTES (AUTO) 0.4 10^3/uL (0.1-1.4); ABSOLUTE NEUT (AUTO) 3.5 10^3/uL (1.7-8.2); BASOPHILS % (AUTO) 0.6 % (0-2); EOSINOPHILS % (AUTO) 7.5 % (0-6); HEMATOCRIT 44.7 % (37.9-51.0); HEMOGLOBIN 15.4 g/dL (13.5-17.0); LYMPHOCYTES % (AUTO) 29.5 % (13-45); MEAN CORPUSCULAR HEMOGLOBIN 27.1 pg (27.0-33.4); MEAN CORPUSCULAR HGB CONC 34.4 g/dL (32.0-36.0); MEAN CORPUSCULAR VOLUME 79 fl (80-97); MONOCYTES % (AUTO) 7.1 % (3-13); PLATELET COUNT 238 10^3/uL (150-450); RED BLOOD COUNT 5.67 10^6/uL (4.35-5.55); RED CELL DISTRIBUTION WIDTH 14.6 % (11.5-14.0); SEGMENTED NEUTROPHILS % (AUTO) 55.3 % (42-78); TOTAL CELLS COUNTED % (AUTO) 100 %; WHITE BLOOD COUNT 6.3 10^3/uL (4.0-10.5)
[2020-04-29 20:22] LABS: ALBUMIN 4.7 g/dL (3.5-5.0); ALKALINE PHOSPHATASE 38 U/L (38-126); ANION GAP 5 (5-19); ASPARTATE AMINO TRANSFERASE 84 U/L (17-59); BILIRUBIN,DIRECT 0.2 mg/dL (0.0-0.4); BILIRUBIN,TOTAL 0.4 mg/dL (0.2-1.3); BLOOD UREA NITROGEN 23 mg/dL (7-20); C-REACTIVE PROTEIN 5.6 mg/L (<10.0); CALCIUM 9.9 mg/dL (8.4-10.2); CARBON DIOXIDE 32 mmol/L (22-30); CHLORIDE 101 mmol/L (98-107); GLUCOSE 87 mg/dL (75-110); POTASSIUM 4.7 mmol/L (3.6-5.0); TOTAL PROTEIN 8.2 g/dL (6.3-8.2)
[2020-04-29 20:47] LABS: ERYTHROCYTE SEDIMENTATION RATE 5 mm/hr (0-15)
[2020-04-29] MEDS ORDERED: OXYCODONE-ACETAMINOPHEN 5-325 MG TABLET PO ONE (23:39)
--- NOTE | 2020-04-30 00:32 | RADIOLOGY REPORT (SQ) ---
EXAM DESCRIPTION: HAND RIGHT 3 VIEWS [employer]: XR HAND 3 OR MORE VIEWS Views: 3 CLINICAL HISTORY: 39 years Male; pain/swelling; COMPARISON: 04/13/2020 FINDINGS: Fixation plates are again noted along the dorsal aspect of the 2nd and 3rd metatarsals. As on the prior exam, the 2nd metacarpal fixation plate has fractured in the midportion, with several millimeter dorsal displacement of the distal portion of the plate. However, there is callus formation with healed fracture in the midshaft of the 2nd metacarpal. The 3rd metacarpal fracture has also healed. One of the screws of the 3rd metacarpal is also fractured, although the plate remains in place. No acute lytic bone changes or periosteal reaction. No soft tissue air. No acute fractures. IMPRESSION: 1. Previous internal fixation of the 2nd and 3rd metacarpals, as described. 2. No radiographic evidence for osteomyelitis.
[2020-04-30] MEDS ORDERED: PREDNISONE 20 MG TABLET PO ONE (00:58)
--- NOTE | 2020-04-30 01:07 | ER Document Report ---
HPI - HPI Time Seen by Provider: 04/29/20 19:07 Pain Level: 4 Notes: HPI: History is obtained from the patient and the records. A 39-year-old male with right hand pain and subjective swelling over the last month. Patient was seen 2 weeks ago for concerns of a possible MRSA infection was placed on Bactrim and Keflex reports no absolute change in the swelling in the hand or the discomfort the discomfort is worse after he lays down to go to sleep at night. States he had surgery on the hand 20 years ago. He never followed up with anyone in the last 2 to 3 weeks since his visit here. Patient also relates that he does not follow with orthopedics for his hand issues. He has not had a fever. - ROS Systems Reviewed and Negative: Yes All other systems reviewed and negative - MUSCULOSKELETAL Musculoskeletal: REPORTS: Extremity pain Past Medical History - General Information source: Patient - Social History Smoking Status: Current Every Day Smoker Chew tobacco use (# tins/day): No Frequency of alcohol use: None Drug Abuse: None Family History: Hypertension Patient has homicidal ideation: No Pulmonary Medical History: Reports: Hx Asthma - Reactive airway disease with viral infections and seasonal allergies Renal/ Medical History: Denies: Hx Peritoneal Dialysis Musculoskeletal Medical History: Reports Hx Musculoskeletal Trauma Skin Medical History: Reports Hx Cellulitis, Reports Hx MRSA - MRSA 02/13/2007 ABDOMEN Traumatic Medical History: Reports: Hx Fractures - Right hand Infectious Medical History: Denies: Hx Hepatitis Past Surgical History: Reports: Hx Abdominal Surgery - Perforated duodenal ulcer 09/30/2006., Hx Bowel Surgery - perforated bowel Vertical Provider Document - CONSTITUTIONAL Notes: PHYSICAL EXAMINATION: GENERAL: Well-appearing, well-nourished and in no acute distress. HEAD: Atraumatic, normocephalic. EYES: Pupils equal round extraocular movements intact, conjunctiva are normal. ENT: Nares patent NECK: Normal range of motion LUNGS: No respiratory distress Musculoskeletal: Normal range of motion to right hand, slight swelling over the dorsal surface however there is no erythema or warmth. Strong radial pulse, cap refill less than 3 seconds, normal motor and sensation. Normal flexion and extension of all digits. NEUROLOGICAL: Normal speech, normal gait. PSYCH: Normal mood, normal affect. SKIN: Warm, Dry, normal turgor, no rashes or lesions noted. - INFECTION CONTROL TRAVEL OUTSIDE OF THE [place] 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 X-rays negative today. Labs negative, no indication of infection. Normal flexion and extension. Slight swelling noted but no warmth or erythema. Patient does have a history of orthopedic surgery to this area several years ago. We will start him on steroids and have him follow-up with orthopedic. Patient agreeable to this plan. - Vital Signs Vital signs: Temp Pulse Resp BP Pulse Ox 98.2 F 73 20 119/70 97 04/29/20 18:20 04/29/20 18:20 04/29/20 18:20 04/29/20 18:20 04/29/20 18:20 - Laboratory Results Result Diagrams: 04/29/20 19:32 04/29/20 19:32 Laboratory Results Interpreted: 04/29/20 04/29/20 19:32 19:32 RBC 5.67 H MCV 79 L RDW 14.6 H Eos % (Auto) 7.5 H Carbon Dioxide 32 H BUN 23 H AST 84 H ALT 117 H Critical Laboratory Results Reviewed: No Critical Results - Radiology Results Critical Radiology Results Reviewed: No Critical Results Discharge - Discharge Clinical Impression: Right hand pain Condition: Stable Disposition: HOME, SELF-CARE Additional Instructions: Continue taking ibuprofen 600 mg every 6 hours. Take the prednisone as prescribed. Follow-up with orthopedics and/or the [facility] if you are unable to get an appointment with orthopedics as the [facility] may be able to help you get in with orthopedics. Prescriptions: Prednisone [Deltasone 20 mg Tablet] 3 tab PO DAILY 4 Days #12 tablet Referrals: LEAH WOLF DO [ACTIVE STAFF] - Follow up as needed [facility] [Outside] - Follow up as needed
[2020-04-30 01:30] VITALS: BP 117/71
== END 2020-04-30 01:29 | disposition home or self-care (01) ==
LOC: ER 18:07
DX: M79.641 Pain in right hand (principal); R22.31 Localized swelling, mass and lump, right upper limb; F17.200 Nicotine dependence, unspecified, uncomplicated; Z86.14 Personal history of Methicillin resistant Staphylococcus aureus infection
CPT/HCPCS: 99284; 36415; 87040; 85025; 85652; 86140; 80053; 73130; J7512